=== PATIENT | male | born 1990 | race African-American/Black ===

== ENCOUNTER 2020-05-30 03:33 | Emergency (ER) | payer SELFPAY ==
[~2020-05-30] VITALS: Ht 188 cm; Wt 157.7 kg
[2020-05-30] MEDS ORDERED: ALBUTEROL SULFATE 8GM INHALER. ONE (03:46)
[2020-05-30 03:56] VITALS: BP 199/120
[2020-05-30] MEDS ORDERED: CLON0.1T PO (04:00)
[2020-05-30] MEDS ORDERED: cloNIDine HCL 0.1 MG TABLET PO ONE (04:00)
[2020-05-30] MEDS ORDERED: PRED20TA PO (04:00)
[2020-05-30] MEDS ORDERED: DEXAMETHASONE 4 MG TABLET PO ONE (04:00)
[2020-05-30] MEDS ORDERED: ALBU2.5V8 IH (04:00)
[2020-05-30] MEDS ORDERED: ALBUTEROL SULFATE 8GM INHALER. INH ONE (04:00)
--- NOTE | 2020-05-30 04:00 | PHYS DOC ---
Past History Past Medical History: Asthma, Hypertension Past Surgical History: No Surgical History Smoking: Quit Less Than 1 Year Alcohol Use: Heavy Drug Use: None General Adult EDM: Chief Complaint: SOA HPI: HPI: 29-year-old male with past medical history of asthma presents with report of increased wheezing and shortness of air over the last week. Patient reports he recently moved here from [place] and currently does not have a new prescription for an inhaler. Denies known sick contacts. Denies fever or chills. Patient denies known exposure to COVID-19. Review of Systems: Review of Systems: Constitutional: Denies fever or chills Eyes: Denies redness or eye pain HENT: Denies nasal congestion or sore throat Respiratory: Reports wheezing and shortness of air Cardiovascular: Denies chest pain or palpitations GI: Denies abdominal pain, nausea, or vomiting : Denies dysuria or hematuria Musculoskeletal: Denies back pain or joint pain Integument: Denies rash or skin lesions Neurologic: Denies headache, focal weakness or sensory changes Complete systems were reviewed and found to be within normal limits, except as documented in this note. Current Medications: Current Meds: Current Medications Medications (Trade) Dose Ordered Sig/Brooklynn Start Time Stop Time Status Last Admin Dose Admin Albuterol Sulfate (Ventolin Hfa Inhaler) 2 puff 1X ONCE 05/30/20 04:00 05/30/20 04:01 UNV 05/30/20 03:51 2 PUFF Clonidine HCl (Catapres) 0.1 mg 1X ONCE 05/30/20 04:00 05/30/20 04:01 UNV Dexamethasone (Decadron) 10 mg 1X ONCE 05/30/20 04:00 05/30/20 04:01 UNV Physical Exam: PE: Constitutional: Well developed, well nourished, no acute distress, non-toxic appearance HENT: Normocephalic, atraumatic Eyes: Conjunctiva normal, no discharge Neck: Normal range of motion, supple Lungs & Thorax: Mild respiratory distress, auditory wheezing noted, equal chest rise and fall Skin: Warm, dry, no erythema, no rash Extremities: No tenderness, ROM intact, no edema Neurologic: Alert and oriented X 3, no focal deficits noted Psychologic: Affect anxiety, judgment normal EKG: EKG: [] Radiology/Procedures: Radiology/Procedures: PROCEDURE: CHEST AP ONLY Chest AP portable at 0327: Reason for examination: Wheezing. The heart size is normal. Mediastinum is unremarkable. Lung latham are clear. No acute bony abnormalities are seen. Impression: No acute cardiopulmonary disease. Electronically signed by: Brandie Vyas MD (05/30/2020 4:11 AM) [id number] Course & Med Decision Making: Course & Med Decision Making Pertinent Imaging studies reviewed. (See chart for details) Patient presents with HPI and physical exam concerning for asthma exacerbation. Patient denies COVID-19 exposure. Afebrile. Sats stable. Albuterol MDI with spacer provided. Oral steroid initiated. X-ray without acute process. Patient noted to have elevated blood pressure which was addressed with 0.1 mg clonidine. Prescriptions were continued albuterol, prednisone, and clonidine PRN provided. Patient stable for discharge with outpatient follow-up with PCP. Discussed findings and plan with patient, who acknowledges understanding and agreement. Dragon Disclaimer: Dragon Disclaimer: This electronic medical record was generated, in whole or in part, using a voice recognition dictation system. Departure Departure: Impression: Primary Impression: Asthma exacerbation Qualified Codes: J45.21 - Mild intermittent asthma with (acute) exacerbation Additional Impression: Hypertension Qualified Codes: I10 - Essential (primary) hypertension Disposition: HOME/RESIDENCE PRIOR TO ADM Condition: STABLE Referrals: PCP,NO (PCP) Patient Instructions: Asthma, Adult, [id number], Hypertension, [id number] Scripts Clonidine Hcl (CLONIDINE HCL) 0.1 Mg Tablet 0.1 MG PO TID PRN PRN for ELEVATED BP, SEE COMMENTS, #14 TAB Take for systolic (upper) blood pressure greater than 185 and/or diastolic (lower) blood pressure greater than 105 Prov: DIMA BRIGGS DO 05/30/20 Prednisone (PREDNISONE) 20 Mg Tablet 2 TAB PO DAILY for Asthma exacerbation, #8 TAB Start this prescription tomorrow, Monday05/31/20 Prov: DIMA BRIGGS DO 05/30/20 Albuterol Sulfate (PROAIR HFA INHALER) 8.5 Gm Hfa.aer.ad 2 PUFF IH PRN Q4-6HRS PRN for wheezing, #1 INHALER 0 Refills Prov: DIMA BRIGGS DO 05/30/20 Justification of Admission: Justification of Admission: Justification of Admission Dx: N/A DIMA BRIGGS DO May 30, 2020 04:00
--- NOTE | 2020-05-30 04:13 | RAD ---
Chest AP portable at 0327: Reason for examination: Wheezing. The heart size is normal. Mediastinum is unremarkable. Lung latham are clear. No acute bony abnormalities are seen. Impression: No acute cardiopulmonary disease. Electronically signed by: Brandie Vyas MD (05/30/2020 4:11 AM) [id number]
== END 2020-05-30 04:34 | disposition home or self-care (01) ==
LOC: ER 03:33
DX: J45.21 Mild intermittent asthma with (acute) exacerbation (principal); F10.20 Alcohol dependence, uncomplicated; I10 Essential (primary) hypertension; Z87.891 Personal history of nicotine dependence; Y90.9 Presence of alcohol in blood, level not specified
CPT/HCPCS: 71045; 94640; 99283; J7613; J8540; 94664

== ENCOUNTER 2020-08-26 10:55 | Emergency (ER) | payer SELFPAY ==
[~2020-08-26] VITALS: Ht 185.4 cm; Wt 151.9 kg
[~2020-08-26 10:55] MED LIST: ALBU2.5V8 IH; CLON0.1T PO; PRED20TA PO
[2020-08-26] MEDS ORDERED: IPRATRPIUM/ALBUTEROL 0.5/2.5MG 3 ML NEBU. NEB ONE (11:15)
[2020-08-26] MEDS ORDERED: predniSONE 20 MG TABLET PO ONE (11:15)
--- NOTE | 2020-08-26 11:19 | PHYS DOC ---
Past History Past Medical History: Asthma, Hypertension Additional Past Medical Histor: obesity Past Surgical History: No Surgical History Smoking: Quit Less Than 1 Year Alcohol Use: Heavy Drug Use: None Adult General Chief Complaint Chief Complaint: SHORTNESS OF BREATH HPI HPI Patient is a 29-year-old male who presents for asthma exacerbation. Patient has a history of this, most recent exacerbation was approximately 3 months ago. Patient cites 4 days of worsening shortness of breath. Reports rhinorrhea and specifically weather change have caused him to increase wheezing and have shortness of breath. Patient still pending his 's newly obtained insurance policy to kick in and as a result, does not have any home inhaler/asthma therapy. Denies any fever, chills, COVID-19 contacts, chest pain or other concerning signs or symptoms Review of Systems Review of Systems Fourteen body systems of review of systems have been reviewed. See HPI for pertinent positives and negative responses, other horne all other systems are negative, non-pertinent or non-contributory Current Medications Current Medications Current Medications Medications (Trade) Dose Ordered Sig/Brooklynn Start Time Stop Time Status Last Admin Dose Admin Albuterol/ Ipratropium (Duoneb) 3 ml 1X ONCE 08/26/20 11:15 08/26/20 11:16 DC Prednisone (Prednisone) 60 mg 1X ONCE 08/26/20 11:15 08/26/20 11:16 DC 08/26/20 11:15 60 MG Allergies Allergies Allergies Coded Allergies Type Severity Reaction Last Updated Verified No Known Drug Allergies 05/30/20 No Physical Exam Physical Exam Constitutional: Well developed, well nourished, no acute distress, non-toxic appearance. HENT: Normocephalic, atraumatic, bilateral external ears normal, oropharynx moist, no oral exudates, nose normal. Eyes: PERRLA, EOMI, conjunctiva normal, no discharge. Neck: Normal range of motion, no tenderness, supple, no stridor. Cardiovascular: Heart rate regular, sinus rhythm, no murmurs rubs or gallops Lungs & Thorax: No obvious respiratory distress, mild increase in accessory muscle usage noted, bilateral wheezes heard diffusely, markedly improved after DuoNeb treatment Abdomen: Bowel sounds normal, soft, no tenderness, no masses, no pulsatile masses. Nonsurgical abdomen, no peritoneal signs Skin: Warm, dry, no erythema, no rash. Back: No tenderness, no CVA tenderness. Extremities: No tenderness, no cyanosis, no clubbing, ROM intact, no edema. Neurologic: Alert and oriented X 3, grossly normal motor & sensory function, no focal deficits noted. Psychologic: Affect normal, judgement normal, mood normal. Current Patient Data Vital Signs Vital Signs Date Time Temp Pulse Resp B/P (MAP) Pulse Ox O2 Delivery O2 Flow Rate FiO2 08/26/20 12:25 76 18 193/92 (125) 95 Room Air 08/26/20 11:15 98.0 EKG EKG EKG ordered and interpreted by myself at 1117 hrs. as sinus rhythm at 63 bpm without any interval abnormalities, no axis deviation, no ischemic findings, no STEMI Radiology/Procedures Radiology/Procedures PROCEDURE: CHEST AP ONLY Examination: CHEST AP ONLY History: Reason: SHOB / Spl. Instructions: / History: Comparison: None. Findings: AP portable upright frontal view of the chest was obtained. The cardiomediastinal silhouette is normal. Lungs are clear. There is no pneumothorax. No pleural effusion is appreciated. No acute bone abnormality. IMPRESSION: No acute cardiopulmonary process. Electronically signed by: Liborio Crain MD (08/26/2020 11:43 AM) [id number] Heart Score Risk Factors: Risk Factors: DM, Current or recent (<one month) smoker, HTN, HLP, family history of CAD, obesity. Risk Scores: Risk Factors: DM, Current or recent (<one month) smoker, HTN, HLP, family history of CAD, obesity. Course & Med Decision Making Course & Med Decision Making Pertinent Labs and Imaging studies reviewed. (See chart for details) Discussed most likely diagnosis of asthma exacerbation. Also discussed elevated blood pressure without diagnosis of hypertension I have provided patient with inhaler and steroid burst. I also advised patient to keep blood pressure log for presentation to primary care when he establishes within upcoming 1 week I did disclose this might be an acute presentation more concerning pathology and as such, strict return precautions were discussed. All questions and concerns addressed prior to discharge home in stable condition Dragon Disclaimer Dragon Disclaimer This electronic medical record was generated, in whole or in part, using a voice recognition dictation system. Departure Departure: Impression: Primary Impression: Asthma exacerbation Additional Impression: Elevated BP without diagnosis of hypertension Disposition: 01 [place] HOME SELF CARE/HOMELESS Condition: STABLE Referrals: PCP,WILLIE (PCP) Patient Instructions: Asthma Attacks, Prevention, Asthma, Adult Additional Instructions: As discussed prior to ER departure, please call primary care physician of your liking to schedule outpatient follow-up in upcoming 1 to 10 days time. You would benefit from outpatient pulmonary function testing whenever acute asthma exacerbation has resolved Please take prescribed steroids and as needed inhaler per instructions If any concerning signs or symptoms present prior to outpatient follow-up please do not hesitate to come back for repeat evaluation It was a pleasure to take care of you and I wish you a speedy recovery! Scripts Prednisone (PREDNISONE) 20 Mg Tablet 40 MG PO DAILY for bronchitis for 5 Days, #10 TAB Prov: ARABELLA SAMUELS DO 08/26/20 Problem Qualifiers ARABELLA SAMUELS DO Aug 26, 2020 11:19
--- NOTE | 2020-08-26 11:33 | EKG ---
[address] [address] Test Date: 2020-08-26 Test Time: 11:13:49 Pat Name: YOEL SUTTON Department: Room: Gender: M Certified Ophthalmic Surgical Assistant: : 1990 Requested By: ARABELLA SAMUELS Order Number: [id number] Reading MD: Measurements Intervals [place] Rate: 63 P: 59 CT: 160 QRS: 75 QRSD: 108 T: 47 QT: 396 QTc: 408 Interpretive Statements SINUS ARRHYTHMIA OTHERWISE NORMAL ECG RI6.02 No previous ECG available for comparison
--- NOTE | 2020-08-26 11:46 | RAD ---
Examination: CHEST AP ONLY History: Reason: SHOB / Spl. Instructions: / History: Comparison: None. Findings: AP portable upright frontal view of the chest was obtained. The cardiomediastinal silhouette is normal. Lungs are clear. There is no pneumothorax. No pleural effusion is appreciated. No acute bone abnormality. IMPRESSION: No acute cardiopulmonary process. Electronically signed by: Liborio Crain MD (08/26/2020 11:43 AM) [id number]
[2020-08-26] MEDS ORDERED: PRED20TA PO (12:03)
[2020-08-26] MEDS ORDERED: ALBUTEROL SULFATE 8GM INHALER. INH ONE (12:15)
[2020-08-26 12:25] VITALS: BP 193/92
== END 2020-08-26 12:27 | disposition home or self-care (01) ==
LOC: ER 10:55
DX: J45.901 Unspecified asthma with (acute) exacerbation (principal); I10 Essential (primary) hypertension; F10.20 Alcohol dependence, uncomplicated; E66.9 Obesity, unspecified; Z87.891 Personal history of nicotine dependence; Z68.41 Body mass index [BMI] 40.0-44.9, adult; Y90.9 Presence of alcohol in blood, level not specified
CPT/HCPCS: 71045; 93005; 94640; 99284; J7512; J7613; 94664

== ENCOUNTER 2020-11-27 01:03 | Emergency (ER) | payer BC ==
[~2020-11-27] VITALS: Ht 185.4 cm; Wt 143.0 kg
[2020-11-27] MEDS ORDERED: IPRATRPIUM/ALBUTEROL 0.5/2.5MG 3 ML NEBU. ONE (01:11)
[2020-11-27] MEDS ORDERED: ALBUTEROL SULFATE 8GM INHALER. ONE (01:16)
[2020-11-27] MEDS ORDERED: ALBUTEROL SULFATE 8GM INHALER. INH ONE (01:30)
[2020-11-27] MEDS ORDERED: DEXAMETHASONE 4 MG TABLET PO ONE (01:30)
[2020-11-27] MEDS ORDERED: ALBU2.5V8 IH (01:55)
[2020-11-27] MEDS ORDERED: PRED20TA PO (01:55)
--- NOTE | 2020-11-27 01:55 | PHYS DOC ---
Past History Past Medical History: Asthma, Hypertension Additional Past Medical Histor: obesity Past Surgical History: Tonsillectomy Smoking: Quit Less Than 1 Year Alcohol Use: Occasionally Drug Use: None General Adult EDM: Chief Complaint: SHORTNESS OF BREATH HPI: HPI: Patient is a [age] year old [sex] who presents with [] Review of Systems: Review of Systems: Constitutional: Denies fever or chills Eyes: Denies change in visual acuity HENT: Denies nasal congestion or sore throat Respiratory: Denies cough or shortness of breath Cardiovascular: Denies chest pain or edema GI: Denies abdominal pain, nausea, vomiting, bloody stools or diarrhea : Denies dysuria Musculoskeletal: Denies back pain or joint pain Integument: Denies rash Neurologic: Denies headache, focal weakness or sensory changes Endocrine: Denies polyuria or polydipsia Lymphatic: Denies swollen glands Psychiatric: Denies depression or anxiety Current Medications: Current Meds: Current Medications Medications (Trade) Dose Ordered Sig/Brooklynn Start Time Stop Time Status Last Admin Dose Admin Albuterol Sulfate (Ventolin Hfa Inhaler) 2 puff 1X ONCE 11/27/20 01:30 11/27/20 01:31 DC 11/27/20 01:22 2 PUFF Albuterol/ Ipratropium (Duoneb) 3 ml STK-MED ONCE 11/27/20 01:11 11/27/20 01:12 DC Dexamethasone (Decadron) 10 mg 1X ONCE 11/27/20 01:30 11/27/20 01:31 DC 11/27/20 01:44 10 MG Allergies: Allergies: Allergies Coded Allergies Type Severity Reaction Last Updated Verified No Known Drug Allergies 05/30/20 No Physical Exam: PE: Constitutional: Well developed, well nourished, no acute distress, non-toxic appearance. [] HENT: Normocephalic, atraumatic, bilateral external ears normal, oropharynx moist, no oral exudates, nose normal. [] Eyes: PERRLA, EOMI, conjunctiva normal, no discharge. [] Neck: Normal range of motion, no tenderness, supple, no stridor. [] Cardiovascular:Heart rate regular rhythm, no murmur [] Lungs & Thorax: Bilateral breath sounds clear to auscultation [] Abdomen: Bowel sounds normal, soft, no tenderness, no masses, no pulsatile nelly s. [] Skin: Warm, dry, no erythema, no rash. [] Back: No tenderness, no CVA tenderness. [] Extremities: No tenderness, no cyanosis, no clubbing, ROM intact, no edema. [] Neurologic: Alert and oriented X 3, normal motor function, normal sensory function, no focal deficits noted. [] Psychologic: Affect normal, judgement normal, mood normal. [] Current Patient Data: Vital Signs: Vital Signs Date Time Temp Pulse Resp B/P (MAP) Pulse Ox O2 Delivery O2 Flow Rate FiO2 11/27/20 01:23 97 Room Air 11/27/20 01:03 98.2 82 18 168/111 (130) EKG: EKG: [] Radiology/Procedures: Radiology/Procedures: [] Heart Score: Risk Factors: Risk Factors: DM, Current or recent (<one month) smoker, HTN, HLP, family history of CAD, obesity. Risk Scores: Score 0 - 3: 2.5% MACE over next 6 weeks - Discharge Home Score 4 - 6: 20.3% MACE over next 6 weeks - Admit for Clinical Observation Score 7 - 10: 72.7% MACE over next 6 weeks - Early Invasive Strategies Course & Med Decision Making: Course & Med Decision Making Pertinent Labs and Imaging studies reviewed. (See chart for details) [] Dragon Disclaimer: Luis Disclaimer: This electronic medical record was generated, in whole or in part, using a voice recognition dictation system. Departure Departure: Impression: Primary Impression: Asthma exacerbation Qualified Codes: J45.21 - Mild intermittent asthma with (acute) exacerbation Disposition: 01 [place] HOME SELF CARE/HOMELESS Condition: STABLE Referrals: PCP,NO (PCP) Patient Instructions: Asthma, Adult, [id number] Additional Instructions: You have been tested for or diagnosed with COVID-19. It is an infection caused by a new type of coronavirus. COVID-19 will cause cold-like or mild flu symptoms in most. It can cause more severe symptoms like problems breathing in some. There is no treatment for COVID-19. The body will clear the infection over time. Self-care will help to ease discomfort. Steps to Take: Self-Care Rest as needed. Healthy habits may help you feel better. Steps include: Choose healthy foods including fruits and vegetables. Drink water throughout the day. Get plenty of sleep each night. If you smoke, try to quit. It may ease breathing. Avoid alcohol. Keep Others Healthy The virus can spread to others. Droplets are released every time you sneeze or cough. The droplets can get into the mouth, nose, or eyes of people near you and lead to infection. To lower the chances of spreading COVID-19 to others: Stay at home until your doctor has said it is safe to leave. If you tested posit kathya this will mean staying isolated until both of the following are true: At least 7 days have passed since the start of illness. You are free of fever for at least 72 hours without the use of medicine. During this time: - Avoid public areas, events, or transportation. Do not return to work or school until your doctor has said it is safe to do so. - Call ahead if you need to go to a medical center. Let them know you may have COVID-19. It will help them guide you where to go. They may also ask you to wear a facemask when you come to the office. - If you call for emergency medical services, let them know you may have COVID- 19. While at home: - Try to avoid close contact with others. Stay about 6 feet away. - If possible, spend most of your time in a separate room from others. - Use a face mask if you will be in close contact with others such as sharing a room or vehicle. - Have someone wipe down common surfaces in the home. Use household electrophysiology nurse practitioner every day on areas like doorknobs, counters, or sinks. - Cough or sneeze into a tissue. Throw the tissue away right after use. If a tissue is not available, cough or sneeze into your elbow. - Wash your hands often. Wash them after sneezing or coughing. Use soap and water and wash for at least 20 seconds. Alcohol based hand negative cleaner can be used if soap and water is not available. - Do not prepare food for others. Avoid sharing personal items like forks, spoons, or toothbrushes. - Avoid close contact with pets while you are sick. There is no evidence of the virus passing to pets. This is a safety step until more is known about this virus. Isolation can be frustrating. Social interaction can help. Keep in touch with friends and family through phone and tech options. You can still interact with others in your home, just keep a safe distance of about 6 feet. Follow-up: Your doctors office will check in with you to see if there are any changes in your health. You may be asked to keep track of symptoms to share with them. They will also let you know when you are clear to be in public again. Problems to Look Out For: Contact your doctor if your recovery is not going as you expect. Get emergency care if you have problems such as: - Trouble breathing - Nonstop chest pain or pressure - Changes in awareness, confusion, or problems waking - Lips or face have bluish color - Worsening of symptoms If you think you have an emergency, call for emergency medical services right away. As taken from [facility] Scripts Prednisone (PREDNISONE) 20 Mg Tablet 2 TAB PO DAILY for Asthma, #8 TAB Start this medication tomorrow, Monday11/28/20 Prov: DIMA BRIGGS DO 11/27/20 Albuterol Sulfate (PROAIR HFA INHALER) 8.5 Gm Hfa.aer.ad 2 PUFF IH PRN Q4-6HRS PRN for wheezing, #1 INHALER 0 Refills Prov: DIMA BRIGGS DO 11/27/20 DIMA BRIGGS DO Nov 27, 2020 01:55
--- NOTE | 2020-11-27 02:47 | RAD ---
XR CHEST 1V Clinical Indication: Reason: SOA, cough, COVID PUI / Spl. Instructions: / History: Comparison: AP chest, August 26, 2020. Findings: The cardiomediastinal silhouette is normal. Lungs are clear. There is no pneumothorax. No pleural eff usion is appreciated. No acute bone abnormality. IMPRESSION: No acute cardiopulmonary process. Electronically signed by: Zachery Hwang MD (11/27/2020 2:44 AM) [facility]
== END 2020-11-27 02:00 | disposition home or self-care (01) ==
LOC: ER 01:03
DX: J45.21 Mild intermittent asthma with (acute) exacerbation (principal); I10 Essential (primary) hypertension; E66.9 Obesity, unspecified; Z87.891 Personal history of nicotine dependence; Z68.41 Body mass index [BMI] 40.0-44.9, adult
CPT/HCPCS: 71045; 94640; 99283; J8540; 94664

== ENCOUNTER 2021-01-11 15:52 | Emergency (ER) | payer BC ==
[~2021-01-11] VITALS: Ht 185.4 cm; Wt 153.0 kg
--- NOTE | 2021-01-11 16:03 | PHYS DOC ---
Past History Past Medical History: Asthma, Hypertension Additional Past Medical Histor: obesity Past Surgical History: Tonsillectomy Smoking: Cigarettes Alcohol Use: Occasionally Drug Use: None Adult General Chief Complaint Chief Complaint: DYSPNEA/RESPIRATOY DISTRESS HPI HPI Patient is a 30yo male presenting for SHOB. Onset was 3-4 days ago. Nothing known makes better, cigarettes and recent change in weather make worse. Denies any pain but admits feelings of non-productive cough and increased wheezing. Has history of asthma and uses albuterol in the past but has been out and unable to see PCP for refills due to covid-19 pandemic. Patient has history of HTN only a nd takes 10mg lisinopril which he did not take today. No fever, history of blood clots or other concerning findings Review of Systems Review of Systems Fourteen body systems of review of systems have been reviewed. See HPI for pertinent positives and negative responses, other horne all other systems are negative, non-pertinent or non-contributory Allergies Allergies Allergies Coded Allergies Type Severity Reaction Last Updated Verified No Known Drug Allergies 05/30/20 No Physical Exam Physical Exam Constitutional: Well developed, well nourished, no acute distress, non-toxic appearance. HENT: Normocephalic, atraumatic, bilateral external ears normal, oropharynx moist, no oral exudates, nose normal. Eyes: PERRLA, EOMI, conjunctiva normal, no discharge. Neck: Normal range of motion, no tenderness, supple, no stridor. Cardiovascular: Heart rate regular, sinus rhythm, no murmurs rubs or gallops Lungs & Thorax: Bilateral breath sounds present with copious wheezing, no increased work of breathing or accessory muscle use Abdomen: Bowel sounds normal, soft, no tenderness, no masses, no pulsatile masses. Nonsurgical abdomen, no peritoneal signs Skin: Warm, dry, no erythema, no rash. Back: No tenderness, no CVA tenderness. Extremities: No tenderness, no cyanosis, no clubbing, ROM intact, no edema. Neurologic: Alert and oriented X 3, grossly normal motor & sensory function, no focal deficits noted. Psychologic: Affect normal, judgement normal, mood normal. Current Patient Data Vital Signs Vital Signs Date Time Temp Pulse Resp B/P (MAP) Pulse Ox O2 Delivery O2 Flow Rate FiO2 01/11/21 15:55 97.5 91 20 208/95 (132) 98 Room Air Vital Signs Date Time Temp Pulse Resp B/P (MAP) Pulse Ox O2 Delivery O2 Flow Rate FiO2 01/11/21 16:48 88 20 169/104 (125) 97 Room Air 01/11/21 15:55 97.5 EKG EKG [] Radiology/Procedures Radiology/Procedures PROCEDURE: CHEST AP ONLY EXAM: AP View of the chest DATE: 01/11/2021 4:18 PM INDICATION: Reason: SHORTNESS OF BREATH. / Spl. Instructions: / History: COMPARISON: No Prior FINDINGS: The heart is not enlarged. Mediastinal and hilar contours are normal. No focal parenchymal airspace opacity. No pleural effusion or pneumothorax. IMPRESSION: 1. No radiographic evidence for acute cardiopulmonary process. Electronically signed by: Juma Villafuerte MD (01/11/2021 4:21 PM) [facility] Heart Score C/O Chest Pain: No Risk Factors: Risk Factors: DM, Current or recent (<one month) smoker, HTN, HLP, family history of CAD, obesity. Risk Scores: Risk Factors: DM, Current or recent (<one month) smoker, HTN, HLP, family history of CAD, obesity. Course & Med Decision Making Course & Med Decision Making Hemodynamically stable patient with history and physical exam consistent with asthma exacerbation. ER workup reviewed, disclosed no indication for further workup or antibiotics. Patient responded to ER intervention. Near complete improvement in wheezing, ambulatory and in no distress prior to departure whilst never desaturating during visit. Patient to leave with RX albuterol, prednisone and close PCP follow-up for repeat examination Strict return precautions were discussed with good understanding, all questions and concerns addressed prior to ER departure in improved condition Dragon Disclaimer Dragon Disclaimer This electronic medical record was generated, in whole or in part, using a voice recognition dictation system. Departure Departure: Impression: Primary Impression: Asthma exacerbation Additional Impression: Hypertension Disposition: 01 DC HOME SELF CARE/HOMELESS Condition: IMPROVED Referrals: PCP,NO (PCP) Patient Instructions: Asthma Prevention-Brief, Asthma, Acute Bronchospasm Additional Instructions: You were seen for an asthma exacerbation. Your exacerbation was likely caused by a change in weather and/or lack of home medications. You should be checking your peak flows daily and taking all of your controller and rescue inhalers as p reviously prescribed. Any new medications today, please take those as prescribed as well. It may take a few days for the steroids to begin to work, but use albuterol as needed for the next few days to help with symptoms. Return to the ED if you develop worsening cough, shortness of breath, fever > 101, chest pain, or any other new or concerning symptoms. You need to follow up with your primary care doctor as soon as possible as a severe asthma exacerbation can be fatal. Scripts Albuterol Sulfate (Proventil Hfa) 6.7 Gm Hfa.aer.ad 6.7 GM IH Q4-6HRS PRN for SHORTNESS OF BREATH, #1 EACH Prov: ARABELLA SAMUELS DO 01/11/21 Prednisone (PREDNISONE) 20 Mg Tablet 40 MG PO DAILY for Asthma exacerbation for 5 Days, #10 TAB Prov: ARABELLA SAMUELS DO 01/11/21 Problem Qualifiers ARABELLA SAMUELS DO Jan 11, 2021 16:03
[2021-01-11] MEDS ORDERED: ALBUTEROL SULFATE 2.5 MG/3 ML NEBU. NEB ONE (16:15)
[2021-01-11] MEDS ORDERED: predniSONE 20 MG TABLET PO ONE (16:15)
--- NOTE | 2021-01-11 16:24 | RAD ---
EXAM: AP View of the chest DATE: 01/11/2021 4:18 PM INDICATION: Reason: SHORTNESS OF BREATH. / Spl. Instructions: / History: COMPARISON: No Prior FINDINGS: The heart is not enlarged. Mediastinal and hilar contours are normal. No focal parenchymal airspace opacity. No pleural effusion or pneumothorax. IMPRESSION: 1. No radiographic evidence for acute cardiopulmonary process. Electronically signed by: Juma Villafuerte MD (01/11/2021 4:21 PM) NANCY
[2021-01-11] MEDS ORDERED: LISINOPRIL 10 MG TABLET PO ONE (16:30)
[2021-01-11] MEDS ORDERED: ALBU6.7H8 IH (16:30)
[2021-01-11] MEDS ORDERED: PRED20TA PO (16:30)
[2021-01-11 16:48] VITALS: BP 169/104
[2021-01-11] MEDS ORDERED: ALBUTEROL SULFATE 8GM INHALER. INH ONE (17:00)
== END 2021-01-11 17:05 | disposition home or self-care (01) ==
LOC: ER 15:52
DX: J45.901 Unspecified asthma with (acute) exacerbation (principal); I10 Essential (primary) hypertension; F17.210 Nicotine dependence, cigarettes, uncomplicated; E66.9 Obesity, unspecified; Z68.41 Body mass index [BMI] 40.0-44.9, adult
CPT/HCPCS: 71045; 94640; 99284; J7512; J7613; 94664

== ENCOUNTER 2021-01-19 23:14 | Emergency (ER) | payer BC ==
[~2021-01-19] VITALS: Ht 185.4 cm; Wt 164.0 kg
[~2021-01-19 23:14] MED LIST changes: +ALBU6.7H8 IH
--- NOTE | 2021-01-19 23:52 | RAD ---
AP chest x-ray HISTORY: Shortness of breath. Asthma. COMPARISON: Chest x-ray January 11, 2021. FINDINGS: Heart size normal. Mediastinal silhouette is normal. No pneumothorax, pulmonary opacities o r pleural effusions. The bones are unremarkable. IMPRESSION: No acute process. Electronically signed by: Kendall Gonzalez MD (01/19/2021 11:49 PM) [facility]
[2021-01-20] MEDS ORDERED: amLODIPine BESYLATE 5 MG TABLET PO ONE
[2021-01-20] MEDS ORDERED: predniSONE 20 MG TABLET PO ONE
[2021-01-20] MEDS ORDERED: IPRATRPIUM/ALBUTEROL 0.5/2.5MG 3 ML NEBU. NEB ONE
[2021-01-20] MEDS ORDERED: ALBUTEROL SULFATE 8GM INHALER. ONE (00:03)
[2021-01-20] MEDS ORDERED: amLODIPine BESYLATE 5 MG TABLET ONE (00:07)
[2021-01-20] MEDS ORDERED: predniSONE 20 MG TABLET ONE (00:07)
--- NOTE | 2021-01-20 00:08 | PHYS DOC ---
Past History Past Medical History: Asthma, Hypertension Additional Past Medical Histor: obesity Past Surgical History: Tonsillectomy Smoking: Cigarettes Alcohol Use: Heavy Drug Use: None Adult General Chief Complaint Chief Complaint: ASTHMA HPI HPI Patient is a 30-year-old male who presents via POV for shortness of breath. Patient has known history of asthma, was seen by me accidentally 1 week prior for asthma exacerbation and was given standard treatment while in ER and subsequently discharged with albuterol inhaler, steroids, and instructions to follow-up with PCP as he has medical insurance. Nonetheless, patient reports running out of inhaler since last visit? He has not been using a spacer/chamber. Patient took steroids to completion. He also ran out of previously prescribed lisinopril 10 mg daily for his blood pressure. States he has had classic feelings of prior asthma exacerbations that includes chest tightness, increased wheeze and fatigue. No fever, no sick contacts, no recent travel, no chest pain, no syncope Review of Systems Review of Systems Fourteen body systems of review of systems have been reviewed. See HPI for pertinent positives and negative responses, other horne all other systems are negative, non-pertinent or non-contributory Current Medications Current Medications Current Medications Medications (Trade) Dose Ordered Sig/Brooklynn Start Time Stop Time Status Last Admin Dose Admin Albuterol Sulfate (Ventolin Hfa Inhaler) 60 puff STK-MED ONCE 01/20/21 00:03 01/20/21 00:04 DC Albuterol/ Ipratropium (Duoneb) 3 ml 1X ONCE 01/20/21 00:00 01/20/21 00:01 UNV Amlodipine Besylate (Norvasc) 5 mg STK-MED ONCE 01/20/21 00:07 01/20/21 00:07 DC Prednisone (Prednisone) 20 mg STK-MED ONCE 01/20/21 00:07 01/20/21 00:07 DC Allergies Allergies Allergies Coded Allergies Type Severity Reaction Last Updated Verified No Known Drug Allergies 05/30/20 No Physical Exam Physical Exam Constitutional: Well developed, well nourished, no acute distress, non-toxic appearance. Patient was able to ambulate to ER room without issues and/or noted hypoxia HENT: Normocephalic, atraumatic, bilateral external ears normal, oropharynx moist, no oral exudates, nose normal. Eyes: PERRLA, EOMI, conjunctiva normal, no discharge. Neck: Normal range of motion, no tenderness, supple, no stridor. Cardiovascular: Heart rate regular, sinus rhythm, no murmurs rubs or gallops Lungs & Thorax: Diffuse wheezing bilaterally without any obvious increased work of breathing or accessory muscle use Abdomen: Bowel sounds normal, soft, no tenderness, no masses, no pulsatile masses. Nonsurgical abdomen, no peritoneal signs Skin: Warm, dry, no erythema, no rash. Back: No tenderness, no CVA tenderness. Extremities: No tenderness, no cyanosis, no clubbing, ROM intact, no edema. Neurologic: Alert and oriented X 3, grossly normal motor & sensory function, no focal deficits noted. Psychologic: Affect normal, judgement normal, mood normal. Current Patient Data Vital Signs Vital Signs Date Time Temp Pulse Resp B/P (MAP) Pulse Ox O2 Delivery O2 Flow Rate FiO2 01/19/21 23:14 98.7 83 20 208/131 (156) 96 Room Air EKG EKG [] Radiology/Procedures Radiology/Procedures PROCEDURE: CHEST AP ONLY AP chest x-ray HISTORY: Shortness of breath. Asthma. COMPARISON: Chest x-ray January 11, 2021. FINDINGS: Heart size normal. Mediastinal silhouette is normal. No pneumothorax, pulmonary opacities or pleural effusions. The bones are unremarkable. IMPRESSION: No acute process. Electronically signed by: Kendall Gonzalez MD (01/19/2021 11:49 PM) [facility] Heart Score C/O Chest Pain: No HEART Score for Chest Pain: HEART Score for Chest Pain Response (Comments) Value History Slighlty/Non-Suspicious 0 ECG Normal 0 Age < 45 0 Risk Factors 1 or 2 Risk Factors 1 Total 1 Risk Factors: Risk Factors: DM, Current or recent (<one month) smoker, HTN, HLP, family history of CAD, obesity. Risk Scores: Risk Factors: DM, Current or recent (<one month) smoker, HTN, HLP, family history of CAD, obesity. Course & Med Decision Making Course & Med Decision Making Patient seen and evaluated by myself and work-up and subsequent treatment for likely diagnosis of asthma exacerbation started Nonetheless, in the middle of the ER work-up, patient eloped Patient pulled out peripheral IV that was placed and left without notifying any medical personnel. Patient did not leave with any paperwork or new prescriptions Dragon Disclaimer Luis Disclaimer This electronic medical record was generated, in whole or in part, using a voice recognition dictation system. Departure Departure: Impression: Primary Impression: Eloped from emergency department Disposition: 07 AMA/ELOPED/LWBS Condition: GUARDED Referrals: PCP,NO (PCP) ARABELLA SAMUELS DO Jan 20, 2021 00:08
[2021-01-20] MEDS ORDERED: ALBUTEROL SULFATE 8GM INHALER. INH ONE (00:15)
[2021-01-20 00:58] VITALS: BP 168/98
== END 2021-01-20 00:58 | disposition left against medical advice (07) ==
LOC: ER 23:14
DX: R06.02 Shortness of breath (principal); R07.89 Other chest pain; R53.83 Other fatigue; J45.909 Unspecified asthma, uncomplicated; I10 Essential (primary) hypertension; F17.210 Nicotine dependence, cigarettes, uncomplicated; F10.20 Alcohol dependence, uncomplicated; Y90.9 Presence of alcohol in blood, level not specified
CPT/HCPCS: 71045; 94640; 99284; J7512; 94664

== ENCOUNTER 2021-02-19 21:06 | Emergency (ER) | payer BC ==
[~2021-02-19] VITALS: Ht 185.4 cm; Wt 153.4 kg
[2021-02-19 21:55] VITALS: BP 183/99
[2021-02-19] MEDS ORDERED: DEXAMETHASONE 4 MG TABLET PO ONE (22:00)
[2021-02-19] MEDS ORDERED: IPRATRPIUM/ALBUTEROL 0.5/2.5MG 3 ML NEBU. NEB ONE (22:00)
[2021-02-19] MEDS ORDERED: ALBU2.5V8 IH (22:38)
--- NOTE | 2021-02-19 22:38 | PHYS DOC ---
Past History Past Medical History: Asthma, Hypertension Additional Past Medical Histor: obesity Past Surgical History: Tonsillectomy Smoking: Cigarettes Alcohol Use: Heavy Drug Use: None Adult General Chief Complaint Chief Complaint: ASTHMA HPI HPI Patient is a 30-year-old male with a past medical history for asthma who presents with asthma exacerbation. States that it started today, and has had some wheezing with it but does not have any of his asthma medications. Denies any recent travel, traumas, illnesses, fevers, chest pain, abdominal pain, nausea, vomiting, dysuria, hematuria, blood in the stool or diarrhea. States he is otherwise been well. States he is eating and drinking normally for him. States he is making urine and stool normally for him. Denies any known ill contacts. States that he would like prescriptions for his albuterol. Review of Systems Review of Systems Review of systems otherwise unremarkable except noted in HPI Current Medications Current Medications Current Medications Medications (Trade) Dose Ordered Sig/Brooklynn Start Time Stop Time Status Last Admin Dose Admin Albuterol/ Ipratropium (Duoneb) 3 ml 1X ONCE 02/19/21 22:00 02/19/21 22:01 DC 02/19/21 21:43 3 ML Dexamethasone (Decadron) 10 mg 1X ONCE 02/19/21 22:00 02/19/21 22:01 DC 02/19/21 21:52 10 MG Allergies Allergies Allergies Coded Allergies Type Severity Reaction Last Updated Verified No Known Drug Allergies 05/30/20 No Physical Exam Physical Exam Constitutional: Well developed, well nourished, no acute distress, non-toxic appearance. [] HENT: Normocephalic, atraumatic, bilateral external ears normal, oropharynx moist, no oral exudates, nose normal. [] Eyes: conjunctiva normal, no discharge. [] Neck: Normal range of motion, no tenderness, supple, no stridor. [] Cardiovascular:Heart rate regular rhythm, no murmur [] Lungs & Thorax: Bilateral breath sounds notable for mild end expiratory wheeze Skin: Warm, dry, no erythema, no rash. [] Extremities: No tenderness, no edema. [] Neurologic: Alert and oriented X 3, no focal deficits noted. [] Psychologic: Affect normal, judgement normal, mood normal. [] Current Patient Data Vital Signs Vital Signs Date Time Temp Pulse Resp B/P (MAP) Pulse Ox O2 Delivery O2 Flow Rate FiO2 02/19/21 21:55 98.2 95 36 183/99 (127) 95 Room Air EKG EKG [] Radiology/Procedures Radiology/Procedures [] Heart Score C/O Chest Pain: No Risk Factors: Risk Factors: DM, Current or recent (<one month) smoker, HTN, HLP, family history of CAD, obesity. Risk Scores: Risk Factors: DM, Current or recent (<one month) smoker, HTN, HLP, family history of CAD, obesity. Course & Med Decision Making Course & Med Decision Making Patient is a 30-year-old male who presents with asthma exacerbation Vital signs initially notable for hypertension and tachypnea on 98% room air. Physical exam noted above. Given DuoNeb and steroids. On reassessment patient's wheezes had resolved and he was feeling much better. Patient stated he was feeling better and was ready to be discharged home and requested a prescription for albuterol. Given prescription of albuterol with some refills. Advised to follow-up with his primary care first thing next week to update on ED visit and discuss his need for asthma management. Gave strict return precautions to the ED. Patient grateful, verbalized understanding and agreed with plan of discharge. [] Dragon Disclaimer Dragon Disclaimer This electronic medical record was generated, in whole or in part, using a voice recognition dictation system. Departure Departure: Impression: Primary Impression: Asthma exacerbation Disposition: 01 HOME / SELF CARE / HOMELESS Condition: GOOD Referrals: PCP,NO (PCP) GADIEL ALANIZ MD Patient Instructions: Asthma Attacks, Prevention, Asthma, Acute Bronchospasm Additional Instructions: Please read all of the attached information carefully. Please use your albuterol prescription as demonstrated and prescribed. Please follow-up with your primary care physician or call the primary care physician at the number pro vided to set up a follow-up appointment as soon as you can to manage her asthma. Please come back to the emergency department immediately with new or concerning symptoms as discussed. Scripts Albuterol Sulfate (PROAIR HFA INHALER) 8.5 Gm Hfa.aer.ad 2 PUFF IH PRN Q4-6HRS PRN for wheezing for 21 Days, #1 INHALER 0 Refills Prov: RAMON CALDERON MD 02/19/21 RAMON CALDERON MD Feb 19, 2021 22:38
[2021-02-19] MEDS ORDERED: ALBUTEROL SULFATE 8GM INHALER. INH ONE (22:45)
== END 2021-02-19 22:45 | disposition home or self-care (01) ==
LOC: ER 21:06
DX: J45.901 Unspecified asthma with (acute) exacerbation (principal); I10 Essential (primary) hypertension; F17.210 Nicotine dependence, cigarettes, uncomplicated; F10.20 Alcohol dependence, uncomplicated; E66.9 Obesity, unspecified; Z68.41 Body mass index [BMI] 40.0-44.9, adult; Y90.9 Presence of alcohol in blood, level not specified
CPT/HCPCS: 94640; 99284; J8540; 94664

== ENCOUNTER 2021-03-25 20:41 | Emergency (ER) | payer BC ==
[~2021-03-25] VITALS: Ht 185.4 cm; Wt 153.4 kg
[2021-03-25] MEDS ORDERED: IPRATRPIUM/ALBUTEROL 0.5/2.5MG 3 ML NEBU. ONE (20:45)
[2021-03-25] MEDS ORDERED: DEXAMETHASONE SOD PHOS 10 MG/ML VIAL. PO ONE (21:00)
[2021-03-25] MEDS ORDERED: ALBU2.5V8 IH (21:00)
[2021-03-25] MEDS ORDERED: IPRATRPIUM/ALBUTEROL 0.5/2.5MG 3 ML NEBU. NEB ONE (21:00)
[2021-03-25] MEDS ORDERED: ALBUTEROL SULFATE 8GM INHALER. INH ONE (21:00)
--- NOTE | 2021-03-25 21:01 | PHYS DOC ---
Past History Past Medical History: Asthma, Hypertension Additional Past Medical Histor: obesity Past Surgical History: Tonsillectomy Smoking: Cigarettes Alcohol Use: Heavy Drug Use: None Adult General Chief Complaint Chief Complaint: SHORTNESS OF BREATH HPI HPI Patient is a 30-year-old male with a past medical history for asthma who presents with a chief complaint of 2 days of wheezing at home and out of albuterol wanting a medication refill. States he currently does not have a physician and would like resources for local free clinics and primary care physicians. Denies any recent travel, illnesses, fevers, chest pain, abdominal pain, nausea, vomiting. Denies any alcohol or drug use. States he is eating and drinking normally for him. States he is making urine and stool normally for him. Denies any recent known ill contacts. Review of Systems Review of Systems Review of systems otherwise unremarkable except noted in HPI Current Medications Current Medications Current Medications Medications (Trade) Dose Ordered Sig/Brooklynn Start Time Stop Time Status Last Admin Dose Admin Albuterol/ Ipratropium (Duoneb) 3 ml 1X ONCE 03/25/21 21:00 03/25/21 21:01 UNV 03/25/21 20:50 3 ML Allergies Allergies Allergies Coded Allergies Type Severity Reaction Last Updated Verified No Known Drug Allergies 05/30/20 No Physical Exam Physical Exam Constitutional: Well developed, well nourished, no acute distress, non-toxic appearance. [] HENT: Normocephalic, atraumatic, bilateral external ears normal, oropharynx moist, no oral exudates, nose normal. [] Eyes: conjunctiva normal, no discharge. [] Neck: Normal range of motion, no tenderness, supple, no stridor. [] Cardiovascular:Heart rate regular rhythm, no murmur [] Lungs & Thorax: Bilateral end expiratory wheeze Skin: Warm, dry, no erythema, no rash. [] Neurologic: Alert and oriented X 3, normal motor function, normal sensory function, no focal deficits noted. [] Psychologic: Affect normal, judgement normal, mood normal. [] Current Patient Data Vital Signs Vital Signs Date Time Temp Pulse Resp B/P (MAP) Pulse Ox O2 Delivery O2 Flow Rate FiO2 03/25/21 20:41 98.8 87 18 179/136 (150) 96 Room Air EKG EKG [] Radiology/Procedures Radiology/Procedures [] Heart Score C/O Chest Pain: No Risk Factors: Risk Factors: DM, Current or recent (<one month) smoker, HTN, HLP, family history of CAD, obesity. Risk Scores: Risk Factors: DM, Current or recent (<one month) smoker, HTN, HLP, family history of CAD, obesity. Course & Med Decision Making Course & Med Decision Making Patient is a 30-year-old male with asthma who presents for wheezing and medicati on refill Vital signs notable for hypertension. Physical exam noted above. Patient given steroids, DuoNeb treatment and albuterol inhaler with spacer and education on how to use it in the emergency department. Given prescription for albuterol. Given resources for local free clinics and primary care physicians. Advised to call to establish care if he does not already have a primary care physician first thing Monday to set up a follow-up visit. Gave return precautions to the ED. Patient grateful, verbalized understanding and agreed with plan of discharge. [] Dragon Disclaimer Dragon Disclaimer This electronic medical record was generated, in whole or in part, using a voice recognition dictation system. Departure Departure: Impression: Primary Impression: Asthma exacerbation Additional Impression: Medication refill Disposition: HOME / SELF CARE / HOMELESS Condition: GOOD Referrals: PCP,NO (PCP) MICKIE MATA MD, PETER J MD Patient Instructions: Asthma Prevention-Brief, Asthma, Acute Bronchospasm Additional Instructions: Please read all of the attached information very carefully. Please use your albuterol as discussed and demonstrated. You are given a prescription for albuterol as well. You were given contact information for local primary care physicians and free clinics. Please call as soon as possible to find a primary care physician if you do not have 1 to establish care and set up a follow-up appointment as soon as you can to discuss your ED visit and need for asthma medication management. Please come back to the emergency department with new or concerning symptoms as discussed. Scripts Albuterol Sulfate (PROAIR HFA INHALER) 8.5 Gm Hfa.aer.ad 2 PUFF IH PRN Q4-6HRS PRN for wheezing for 21 Days, #1 INHALER 2 Refills Prov: RAMON CALDERON MD 03/25/21 Problem Qualifiers RAMON CALDERON MD March 25, 2021 21:01
[2021-03-25 21:09] VITALS: BP 191/113
== END 2021-03-25 21:13 | disposition home or self-care (01) ==
LOC: ER 20:41
DX: J45.901 Unspecified asthma with (acute) exacerbation (principal); I10 Essential (primary) hypertension; F17.210 Nicotine dependence, cigarettes, uncomplicated; Z76.0 Encounter for issue of repeat prescription
CPT/HCPCS: 94640; 99283; J1100

== ENCOUNTER 2021-03-28 22:25 | Emergency (ER) | payer BC ==
[~2021-03-28] VITALS: Ht 185.4 cm; Wt 153.4 kg
[2021-03-28 22:25] VITALS: BP 177/110
--- NOTE | 2021-03-28 22:37 | PHYS DOC ---
Past History Past Medical History: Asthma, Hypertension Additional Past Medical Histor: obesity Past Surgical History: Tonsillectomy Smoking: Cigarettes Alcohol Use: Heavy Drug Use: None General Adult EDM: Chief Complaint: ABSCESS HPI: HPI: ".. I get these abscess on my head.. they have been there a long time.. I had them in [place] but couple tonight area more swollen than usual....I think they need drainage.. " Patient is a 30 year old male who presents with above hx and complaints keloids, cellulitis and abscess on scalp. Patient has history of keloid lesion to the scalp for years and past year have had occasional episodes where the keloids become infected. Patient had keloids even when he was in [place] has recently moved here in the past year. Patient does not remember his last tetanus vaccination. No recent travel outside the [facility]. No specific ill contacts. Patient denies any history immunosuppression. Patient does have numerous keloids to his scalp and also other areas on his body. There were some keloids that appear to be inflamed and had a fluctuant area which appeared to be cyst or abscess formation. Patient does have some adenopathy at nuchal line on scalp. Review of Systems: Review of Systems: Constitutional: Denies fever or chills Eyes: Denies change in visual acuity HENT: Denies nasal congestion or sore throat Respiratory: Denies cough or shortness of breath Cardiovascular: Denies chest pain or edema GI: Denies abdominal pain, nausea, vomiting, bloody stools or diarrhea : Denies dysuria Musculoskeletal: Denies back pain or joint pain Integument: Complains of keloids and abscess formation on his scalp Neurologic: Denies headache, focal weakness or sensory changes Endocrine: Denies polyuria or polydipsia Lymphatic: Denies swollen glands Psychiatric: History of anxiety Family History: Family History: Noncontributory to presentation Allergies: Allergies: Allergies Coded Allergies Type Severity Reaction Last Updated Verified No Known Drug Allergies 05/30/20 No Physical Exam: PE: Constitutional: Mild acute distress, non-toxic appearance. [] HENT: Normocephalic, atraumatic, bilateral external ears normal, oropharynx moist, no oral exudates, nose normal. Multiple keloids on scalp. Has 2 keloids that have collection of fluctuant material and appear to be infected. Does have some adenopathy on scalp line posterior neck Eyes: PERRLA, EOMI, conjunctiva normal, no discharge. [] Neck: Normal range of motion, no tenderness, supple, no stridor. [] Cardiovascular:Heart rate regular rhythm, no murmur. Monitor shows sinus rhythm. Lungs & Thorax: Bilateral breath sounds equal apex with scattered wheezes on auscultation [] Abdomen: Bowel sounds normal, soft, no tenderness, no masses, no pulsatile masses. Obese Skin: Warm, dry, no erythema, no rash. Multiple keloids. Keloids on scalp has to the. Has some cellulitis. Tattoos Back: No tenderness, no CVA tenderness. [] Extremities: No tenderness, no cyanosis, no clubbing, ROM intact, no edema. [] Neurologic: Alert and oriented X 3, moves all extremities on request, does have distal sensory,, no focal deficits noted. [] Psychologic: Affect anxious, judgement normal, mood normal. [] EKG: EKG: [] Radiology/Procedures: Radiology/Procedures: [] Heart Score: C/O Chest Pain: N/A Risk Factors: Risk Factors: DM, Current or recent (<one month) smoker, HTN, HLP, family history of CAD, obesity. Risk Scores: Score 0 - 3: 2.5% MACE over next 6 weeks - Discharge Home Score 4 - 6: 20.3% MACE over next 6 weeks - Admit for Clinical Observation Score 7 - 10: 72.7% MACE over next 6 weeks - Early Invasive Strategies Course & Med Decision Making: Course & Med Decision Making Pertinent Labs and Imaging studies reviewed. (See chart for details) Procedure note-aspiration of abscess. The 2 keloids that appear to be infected and had a collection of material. Cleaned with alcohol. Aspirated approximately 1 cm of purulent pus from both sites. This was sent for culture and sensitivity. Patient was started on Bactrim. Advised to use medicated shampoo daily. Also compresses of salt water or Epson salts may be helpful. Must follow-up primary care. Patient's tetanus was updated. Pt. to follow up pending cultures with primary. Impression: 1. Keloids 2. Cellulitis and abscess 3. History of hypertension 4. History of asthma 5. Hx. of Alcohol abuse [] Dragon Disclaimer: Dragon Disclaimer: This electronic medical record was generated, in whole or in part, using a voice recognition dictation system. Departure Departure: Referrals: PCP,NO (PCP) Scripts Sulfamethoxazole/Trimethoprim (BACTRIM DS TABLET) 1 Each Tablet 1 TAB PO BID for cellulitis for 10 Days, #20 TAB 0 Refills Prov: GASTON LUTZ MD 03/28/21 Dragroberto Disclaimer This chart was dictated in whole or in part using Voice Recognition software in a busy, high-work load, and often noisy Emergency Department environment. It may contain unintended and wholly unrecognized errors or omissions. Dragon Disclaimer This chart was dictated in whole or in part using Voice Recognition software in a busy, high-work load, and often noisy Emergency Department environment. It may contain unintended and wholly unrecognized errors or omissions. GASTON LUTZ MD March 28, 2021 22:37
[2021-03-28] MEDS ORDERED: TETANUS AND DIPHTHERIA TOX/PF 0.5 ML VIAL. VAX IM ONE (23:00)
[2021-03-28] MEDS ORDERED: SULF1TAB24 PO (23:01)
[2021-03-28] MEDS: SMZ/TMP 800/160MG TABLET. PO ONE (23:25)
[2021-03-28] MEDS: DIPH,PERTUSS(ACELL),TET VAC/PF 0.5 ML SYRINGE. VAX IM ONE (23:26)
== END 2021-03-28 23:25 | disposition home or self-care (01) ==
LOC: ER 22:25
DX: L03.811 Cellulitis of head [any part, except face] (principal); L02.811 Cutaneous abscess of head [any part, except face]; L91.0 Hypertrophic scar; I10 Essential (primary) hypertension; J45.909 Unspecified asthma, uncomplicated; F17.210 Nicotine dependence, cigarettes, uncomplicated; F10.20 Alcohol dependence, uncomplicated; Y90.9 Presence of alcohol in blood, level not specified
CPT/HCPCS: 10160; 90471; 90715; 99284

== ENCOUNTER 2021-05-08 14:18 | Emergency (ER) | payer BC ==
[~2021-05-08] VITALS: Ht 185.4 cm; Wt 150.0 kg
[~2021-05-08 14:18] MED LIST changes: +SULF1TAB24 PO
--- NOTE | 2021-05-08 14:41 | PHYS DOC ---
Past History Past Medical History: Asthma, Hypertension Additional Past Medical Histor: obesity Past Surgical History: Tonsillectomy Smoking: Cigarettes Alcohol Use: Heavy Drug Use: None General Adult EDM: Chief Complaint: SHORTNESS OF BREATH HPI: HPI: Patient is a 30-year-old male who presents to the ER today for shortness of breath and a nonproductive cough for 3 days. Patient reports believes he is having an asthma flare. Patient denies fevers, loss of taste or smell, nasal congestion or drainage, sore throat, chest pain, sick contacts. Patient is a current smoker. Patient has not been vaccinated for COVID-19. Patient does have a history of asthma but does not take any medications at home. Review of Systems: Review of Systems: 14 body systems of the review of systems have been reviewed. See HPI for pertinent positive and negative responses, otherwise all other systems are ne gative, nonpertinent or noncontributory Allergies: Allergies: Allergies Coded Allergies Type Severity Reaction Last Updated Verified No Known Drug Allergies 05/30/20 No Physical Exam: PE: Constitutional: Well developed, well nourished, no acute distress, non-toxic appearance. [] HENT: Normocephalic, atraumatic, bilateral external ears normal, oropharynx moist, no oral exudates, nose normal, pharynx without erythema. [] Eyes: PERRLA, EOMI, conjunctiva normal, no discharge. [] Neck: Normal range of motion, supple, no stridor, no cervical lymphadenopathy. [] Cardiovascular:Heart rate regular rhythm, no murmur [] Lungs & Thorax: Scattered wheezing noted throughout all lung latham. [] Abdomen: Bowel sounds normal, soft, no tenderness, no masses, no pulsatile masses. [] Skin: Warm, dry, no erythema, no rash. [] Back: Normal range of motion [] Extremities: No tenderness, no cyanosis, no clubbing, ROM intact, no edema. [] Neurologic: Alert and oriented X 3, normal motor function, normal sensory function, no focal deficits noted. [] Psychologic: Affect normal, judgement normal, mood normal. [] Current Patient Data: Labs: Laboratory Tests Test 05/08/21 15:39 05/08/21 15:57 Bedside Hemoglobin 16.0 gm/dL Bedside Hematocrit 47 % Bedside Sodium 142 mmol/L Bedside Potassium 3.6 mmol/L Bedside Chloride 105 mmol/L Bedside Total CO2 21 mmol/L Anion Gap 20 mmol/L Bedside Blood Urea Nitrogen 13 mg/dL Bedside Creatinine 0.9 mg/dL Glucose Level 85 mg/dL Bedside Ionized Calcium (Mustapha) 1.21 mmol/L White Blood Count 8.2 x10^3/uL Red Blood Count 5.33 x10^6/uL Hemoglobin 14.6 g/dL Hematocrit 43.8 % Mean Corpuscular Volume 82 fL Mean Corpuscular Hemoglobin 27 pg Mean Corpuscular Hemoglobin Concent 33 g/dL Red Cell Distribution Width 14.8 % Platelet Count 262 x10^3/uL Neutrophils (%) (Auto) 58 % Lymphocytes (%) (Auto) 27 % Monocytes (%) (Auto) 8 % Eosinophils (%) (Auto) 6 % Basophils (%) (Auto) 1 % Neutrophils # (Auto) 4.8 x10^3uL Lymphocytes # (Auto) 2.2 x10^3/uL Monocytes # (Auto) 0.7 x10^3/uL Eosinophils # (Auto) 0.5 x10^3/uL Basophils # (Auto) 0.1 x10^3/uL Current Medications Medications (Trade) Dose Ordered Sig/Brooklynn Route PRN Reason Start Time Stop Time Status Last Admin Dose Admin Albuterol/ Ipratropium (Duoneb) 3 ml 1X ONCE NEB 05/08/21 14:45 05/08/21 14:46 DC 05/08/21 14:50 EKG: EKG: [] Radiology/Procedures: Radiology/Procedures: [] Heart Score: C/O Chest Pain: No Risk Factors: Risk Factors: DM, Current or recent (<one month) smoker, HTN, HLP, family history of CAD, obesity. Risk Scores: Score 0 - 3: 2.5% MACE over next 6 weeks - Discharge Home Score 4 - 6: 20.3% MACE over next 6 weeks - Admit for Clinical Observation Score 7 - 10: 72.7% MACE over next 6 weeks - Early Invasive Strategies Course & Med Decision Making: Course & Med Decision Making Pertinent Labs and Imaging studies reviewed. (See chart for details) Patient is a 30-year-old male being seen in the ER today for an asthma exacerbation. He reports shortness of breath and a nonproductive cough for 3 days. He does have a history of asthma but does not take any medications at [facility] [employer]. Patient was given a DuoNeb treatment in the ER as he had wheezing noted throughout all lung latham. Patient's wheezing has improved he does have some mild scattered wheezing noted in all lung latham. Patient reports that he feels much better. He is not hypoxic, nonlabored, no acute distress, no tachypnea. Patient was noted to have elevated blood pressure readings in the ER. Upon arrival his blood pressure was 160s over 100s. Upon reassessment it was 190s over 128. Patient does have a history of hypertension but does not take any medications at home. Patient is unsure of what medications he is supposed to be taking for his hypertension. Lab work performed in the ER. Patient offered a chest x-ray but refused. Lab work unremarkable, normal kidney function. Patient educated on the need to follow-up with a primary care provider regarding his elevated blood pressure readings.. I discussed with patient all findings as well as the need to follow-up with PCP for further evaluation and treatment or return to the ER if any new or worsening symptoms. Strict return precautions were also discussed at length. Patient voiced understanding and agreement with the plan. Patient is hemodynamically stable at the time of disposition. Upon discharge patient is requesting an albuterol inhaler to go home with. Patient states that if he does not get an albuterol inhaler to go home with he will be right back in the ER. Patient ordered an albuterol inhaler for home. Dragon Disclaimer: Luis Disclaimer: This electronic medical record was generated, in whole or in part, using a voice recognition dictation system. Departure Departure: Impression: Primary Impression: Asthma exacerbation Qualified Codes: J45.21 - Mild intermittent asthma with (acute) exacerbation Disposition: HOME / SELF CARE / HOMELESS Condition: GOOD Referrals: PCP,NO (PCP) Patient Instructions: Asthma, Adult, Smoking Cessation Additional Instructions: Thank you for choosing [facility] and allowing me to participate in your care. You were seen in the ER today for an asthma exacerbation. You were given a breathing treatment and reported feeling symptom improvement following. You are being discharged home with a steroid please take as directed. You are also being sent home with a prescription for an albuterol inhaler. You can take 2 puffs every 6-8 hours for shortness of breath. Please follow up with your primary care provider tomorrow regarding your ER visit. Your blood pressure was elevated in the ER today. We performed lab work which was unremarkable. You need to follow-up with your primary care provider regarding your blood pressure and get on blood pressure medications. If your symptoms worsen or you develop increased shortness of breath, chest pain, difficulty swallowing, fevers, please return. You are also given information today on smoking cessation. Given your chronic lung condition and is necessary that you decrease and discontinue cigarette use. EMERGENCY DEPARTMENT GENERAL DISCHARGE INSTRUCTIONS Thank you for coming to [facility] (ED) today and trusting us with you care. We trust that you had a positivie experience in our Emergency Department. If you wish to speak to the department management, you may call the director at [phone]. YOUR FOLLOW UP INSTRUCTIONS ARE FOLLOWS: 1. Do you have a private Doctor? If you do not have a private doctor, please ask for a resource list of physicians or clinics that may be able to assist you with follow up care. 2. The Emergency Physician has interpreted your x-rays. The X-Ray specialist will also review them. If there is a change in the findings, you will be notified in 48 hours when at all possible. 3. A lab test or culture has been done, your results will be reviewed and you will be notified if you need a change in treatment. ADDITIONAL INSTRUCTIONS AND INFORMATION: 1. Your care today has been supervised by a physician who is specially trained in emergency care. Many problems require more than one evaluation for a complete diagnosis and treatment. We recommend that you schedule your follow up appointment as recommended to ensure complete treatment of you illness or injury. If you are unable to obtain follow up care and continue to have a problem, or if your condition worsens, we recommend that you return to the ED. 2. We are not able to safely determine your condition over the phone nor are we able to give sound medical advice over the phone. For these safety reasons, if you call for medical advice we will ask you to come to the ED for further evaluation. 3. If you have any questions regarding these discharge instructions please call the ED at [phone]. SAFETY INFORMATION: In the interest of safety, wellness, and injury prevention; we encourage you to wear your sealbelt, if you smoke; quite smoking, and we encourage family to use a protective helmet for bicycling and other sporting events that present an increased risk for head injury. IF YOUR SYMPTOMS WORSEN OR NEW SYMPTOMS DEVELOP, OR YOU HAVE CONCERNS ABOUT YOUR CONDITION; OR IF YOUR CONDITION WORSENS WHILE YOU ARE WAITING FOR YOUR FOLLOW UP APPOINTMENT; EITHER CONTACT YOUR PRIMARY CARE DOCTOR, THE PHYSICIAN WHOSE NAME AND NUMBER YOU WERE GIVEN, OR RETURN TO THE ED IMMEDIATELY. Scripts Prednisone (PREDNISONE) 20 Mg Tablet 1 TAB PO TID for asthma for 5 Days, #15 TAB 0 Refills Prov: YEMI ANN APRN 05/08/21 Albuterol Sulfate (PROAIR HFA INHALER) 8.5 Gm Hfa.aer.ad 2 PUFF IH PRN Q4-6HRS PRN for wheezing for 21 Days, #1 INHALER 0 Refills Prov: YEMI ANN APRN 05/08/21 YEMI ANN APRN May 08, 2021 14:41
[2021-05-08] MEDS ORDERED: IPRATRPIUM/ALBUTEROL 0.5/2.5MG 3 ML NEBU. NEB ONE (14:45)
[2021-05-08 16:30] LABS: BASO # 0.1 x10^3/uL (0.0-0.2); BASO % 1 % (0-3); EOS # 0.5 x10^3/uL (0.0-0.7); EOS % 6 % (0-3); HEMATOCRIT 43.8 % (39.0-53.0); HEMOGLOBIN 14.6 g/dL (13.0-17.5); LYMPH # 2.2 x10^3/uL (1.0-4.8); LYMPH % 27 % (24-48); MEAN CORPUSCULAR HEMOGLOBIN 27 pg (25-35); MEAN CORPUSCULAR HGB CONC 33 g/dL (31-37); MEAN CORPUSCULAR VOLUME 82 fL (79-100); MONO # 0.7 x10^3/uL (0.0-1.1); MONO % 8 % (0-9); NEUT # 4.8 x10^3uL (1.8-7.7); NEUT % 58 % (31-73); PLATELET COUNT 262 x10^3/uL (140-400); RED BLOOD COUNT 5.33 x10^6/uL (4.30-5.70); RED CELL DISTRIBUTION WIDTH 14.8 % (11.5-14.5); WHITE BLOOD COUNT 8.2 x10^3/uL (4.0-11.0)
[2021-05-08 17:16] LABS: POTASSIUM ISTAT 3.6 mmol/L (3.5-5.0)
[2021-05-08] MEDS ORDERED: PRED20TA PO (17:34)
[2021-05-08] MEDS ORDERED: ALBU2.5V8 IH (17:34)
[2021-05-08 17:46] VITALS: BP 185/100
[2021-05-08] MEDS ORDERED: ALBUTEROL SULFATE 8GM INHALER. INH ONE (18:00)
== END 2021-05-08 17:48 | disposition home or self-care (01) ==
LOC: ER 14:18
DX: J45.901 Unspecified asthma with (acute) exacerbation (principal); I10 Essential (primary) hypertension; F17.210 Nicotine dependence, cigarettes, uncomplicated
CPT/HCPCS: 36415; 80047; 85025; 94640; 99283; 99284-25

== ENCOUNTER 2021-07-30 22:24 | Emergency (ER) | payer BC ==
[~2021-07-30] VITALS: Ht 185.4 cm; Wt 150.0 kg
--- NOTE | 2021-07-30 22:32 | PHYS DOC ---
Past History Past Medical History: Asthma, Hypertension Additional Past Medical Histor: obesity Past Surgical History: No Surgical History Smoking: Cigarettes Alcohol Use: Heavy Drug Use: None Adult General Chief Complaint Chief Complaint: ASTHMA HPI HPI Patient is a 30-year-old male presenting for asthma exacerbation. Has history of asthma that is typically well controlled with as needed albuterol inhaler rescue medication only. States he typically has exacerbations like this around this time a year when the seasons change. Reports symptom onset approximately 1 week ago, also states he has history of hypertension. He has been out of all home blood pressure medication for which he forgot what he takes in addition to albuterol inhaler. I personally have given him several inhalers in the past, he states he has not followed up with outpatient primary care for ER follow-up status post prior ER visits. On arrival, he is complaining of wheezing and shortness of breath only, no vision changes, chest pain, ripping or tearing sensation in chest, productive cough, abdominal pain, nausea vomit diarrhea, motor or sensory or neuro function changes. No known sick contacts, no fever, he has not been vaccinated against COVID-19 Review of Systems Review of Systems Fourteen body systems of review of systems have been reviewed. See HPI for pertinent positives and negative responses, other horne all other systems are negative, non-pertinent or non-contributory Current Medications Current Medications Current Medications Medications (Trade) Dose Ordered Sig/Brooklynn Start Time Stop Time Status Last Admin Dose Admin Albuterol/ Ipratropium (Duoneb) 3 ml 1X ONCE 07/30/21 22:30 07/30/21 22:31 UNV Allergies Allergies Allergies Coded Allergies Type Severity Reaction Last Updated Verified No Known Drug Allergies 05/30/20 No Physical Exam Physical Exam Constitutional: Well developed, well nourished, nontoxic in appearance but in moderate respiratory distress with increased work of breathing and audible wheezes while ambulating into ER room HENT: Normocephalic, atraumatic, bilateral external ears normal, oropharynx mois t, no oral exudates, nose normal. Eyes: PERRLA, EOMI, conjunctiva normal, no discharge. Neck: Normal range of motion, no tenderness, supple, no stridor. Cardiovascular: Heart rate regular, sinus rhythm, no murmurs rubs or gallops Lungs & Thorax: Increased work of breathing with diffuse wheezes present globally in all lobes that are audible even without auscultation of the ches t/lungs Abdomen: Bowel sounds normal, soft, no tenderness, no masses, no pulsatile masses. Nonsurgical abdomen, no peritoneal signs Skin: Warm, dry, no erythema, no rash. Back: No tenderness, no CVA tenderness. Extremities: No tenderness, no cyanosis, no clubbing, ROM intact, no edema. Neurologic: Alert and oriented X 3, grossly normal motor & sensory function, no focal deficits noted. Psychologic: Affect normal, judgement normal, mood normal. Current Patient Data Vital Signs Vital Signs Date Time Temp Pulse Resp B/P (MAP) Pulse Ox O2 Delivery O2 Flow Rate FiO2 07/30/21 22:32 87 36 201/139 (159) 97 Room Air Vital Signs Date Time Temp Pulse Resp B/P (MAP) Pulse Ox O2 Delivery O2 Flow Rate FiO2 07/30/21 22:34 96 Room Air 07/30/21 22:32 87 36 201/139 (159) Lab Results Laboratory Tests Test 07/30/21 22:45 White Blood Count 9.3 x10^3/uL Red Blood Count 5.28 x10^6/uL Hemoglobin 14.3 g/dL Hematocrit 43.0 % Mean Corpuscular Volume 82 fL Mean Corpuscular Hemoglobin 27 pg Mean Corpuscular Hemoglobin Concent 33 g/dL Red Cell Distribution Width 15.5 % Platelet Count 258 x10^3/uL Neutrophils (%) (Auto) 51 % Lymphocytes (%) (Auto) 30 % Monocytes (%) (Auto) 8 % Eosinophils (%) (Auto) 9 % Basophils (%) (Auto) 1 % Neutrophils # (Auto) 4.7 x10^3uL Lymphocytes # (Auto) 2.8 x10^3/uL Monocytes # (Auto) 0.8 x10^3/uL Eosinophils # (Auto) 0.9 x10^3/uL Basophils # (Auto) 0.1 x10^3/uL Sodium Level 135 mmol/L Potassium Level 3.6 mmol/L Chloride Level 98 mmol/L Carbon Dioxide Level 25 mmol/L Anion Gap 12 Blood Urea Nitrogen 12 mg/dL Creatinine 1.0 mg/dL Estimated GFR (Cockcroft-Gault) 105.5 Glucose Level 129 mg/dL Calcium Level 9.2 mg/dL Troponin I Quantitative < 0.017 ng/mL Current Medications Medications (Trade) Dose Ordered Sig/Brooklynn Route PRN Reason Start Time Stop Time Status Last Admin Dose Admin Albuterol/ Ipratropium (Duoneb) 3 ml 1X ONCE NEB 07/30/21 22:30 07/30/21 22:57 DC 07/30/21 22:33 Albuterol/ Ipratropium (Duoneb) 3 ml 1X ONCE NEB 07/30/21 22:45 07/30/21 22:57 DC Prednisone (Prednisone) 60 mg 1X ONCE PO 07/30/21 22:45 07/30/21 22:57 DC 07/30/21 22:47 EKG EKG EKG ordered and interpreted by myself at 2313 hrs. is sinus rhythm at 72 bpm, unremarkable intervals, no axis deviation, no acute ischemic findings, no STEMI Radiology/Procedures Radiology/Procedures Exam: Chest one view INDICATION: Shortness of breath TECHNIQUE: Frontal view of the chest Comparisons: 01/19/2021 FINDINGS: The cardiomediastinal silhouette and pulmonary vessels are within normal limits. Subtle patchy bibasilar airspace disease. No pleural effusion. IMPRESSION: Subtle patchy bibasilar airspace disease may be infectious or inflammatory in etiology. Electronically signed by: Ryan Rincon MD (07/30/2021 11:12 PM) [facility] Heart Score C/O Chest Pain: No HEART Score for Chest Pain: HEART Score for Chest Pain Response (Comments) Value History Slighlty/Non-Suspicious 0 ECG Normal 0 Age < 45 0 Risk Factors No Risk Factors 0 Troponin < Normal Limit 0 Total 0 Risk Factors: Risk Factors: DM, Current or recent (<one month) smoker, HTN, HLP, family history of CAD, obesity. Risk Scores: Risk Factors: DM, Current or recent (<one month) smoker, HTN, HLP, family history of CAD, obesity. Course & Med Decision Making Course & Med Decision Making Airway patent, increased work of breathing, IV access and vitals obtained concerning for marked hypertension and tachypnea HPI, physical exam and comprehensive ER work-up nonconcerning for any emergent or surgical issues. Patient suffering from acute exacerbation of asthma in ad dition to hypertension. He has been out of his rescue inhaler and home hypertensive medication which he cannot remember Patient's condition markedly improved with nebulized DuoNeb and steroids. I reviewed all findings with patient. 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 As such, patient given amlodipine with instructions to taper up as necessary and keep blood pressure log for follow-up in outpatient setting with primary care provider. Strict return precautions were discussed with good understanding by patient, all questions and concerns addressed prior to ER departure Luis Disclaimer Dragon Disclaimer This electronic medical record was generated, in whole or in part, using a voice recognition dictation system. Departure Departure: Impression: Primary Impression: Asthma exacerbation Additional Impression: Hypertension Referrals: PCP,NO (PCP) Patient Instructions: Asthma, Adult, Hypertension Scripts Prednisone (PREDNISONE) 20 Mg Tablet 60 MG PO DAILY for asthma exacerbation for 4 Days, #12 TAB Prov: ARABELLA SAMUELS DO 07/30/21 Albuterol Sulfate (PROVENTIL HFA INHALER) 6.7 Gm Hfa.aer.ad 1 PUFF INH PRN Q4HRS PRN for FOR ASTHMA, #1 EACH 0 Refills Prov: ARABELLA SAMUELS DO 07/30/21 Amlodipine Besylate (AMLODIPINE BESYLATE) 5 Mg Tablet 1 TAB PO DAILY for hypertension, #30 TAB 1 Refill Prov: ARABELLA SAMUELS DO 07/30/21 Problem Qualifiers ARABELLA SAMUELS DO Jul 30, 2021 22:32
[2021-07-30] MEDS: IPRATRPIUM/ALBUTEROL 0.5/2.5MG 3 ML NEBU. NEB ONE ×2 (22:33→22:45)
[2021-07-30] MEDS: predniSONE 20 MG TABLET PO ONE (22:47)
--- NOTE | 2021-07-30 23:15 | RAD ---
Exam: Chest one view INDICATION: Shortness of breath TECHNIQUE: Frontal view of the chest Comparisons: 01/19/2021 FINDINGS: The cardiomediastinal silhouette and pulmonary vessels are within normal limits. Subtle patchy bibasilar airspace disease. No pleural effusion. IMPRESSION: Subtle patchy bibasilar airspace disease may be infectious or inflammatory in etiology. Electronically signed by: Ryan Rincon MD (07/30/2021 11:12 PM) CRISTOPHER
[2021-07-30 23:17] LABS: BASO # 0.1 x10^3/uL (0.0-0.2); BASO % 1 % (0-3); EOS # 0.9 x10^3/uL (0.0-0.7); EOS % 9 % (0-3); HEMOGLOBIN 14.3 g/dL (13.0-17.5); LYMPH # 2.8 x10^3/uL (1.0-4.8); LYMPH % 30 % (24-48); MEAN CORPUSCULAR HEMOGLOBIN 27 pg (25-35); MEAN CORPUSCULAR HGB CONC 33 g/dL (31-37); MEAN CORPUSCULAR VOLUME 82 fL (79-100); MONO # 0.8 x10^3/uL (0.0-1.1); MONO % 8 % (0-9); NEUT # 4.7 x10^3uL (1.8-7.7); NEUT % 51 % (31-73); PLATELET COUNT 258 x10^3/uL (140-400); RED BLOOD COUNT 5.28 x10^6/uL (4.30-5.70); RED CELL DISTRIBUTION WIDTH 15.5 % (11.5-14.5); WHITE BLOOD COUNT 9.3 x10^3/uL (4.0-11.0)
[2021-07-30 23:28] LABS: CALCIUM 9.2 mg/dL (8.5-10.1); GFR 105.5; POTASSIUM 3.6 mmol/L (3.5-5.1)
[2021-07-30] MEDS: ALBUTEROL SULFATE 8GM INHALER. INH ONE (23:45)
[2021-07-30] MEDS ORDERED: PRED20TA PO (23:47)
[2021-07-30] MEDS ORDERED: ALBU2.5V8 INH (23:47)
[2021-07-30] MEDS ORDERED: AMLO-186 PO (23:47)
[2021-07-30 23:48] VITALS: BP 213/101
[2021-07-30] MEDS: amLODIPine BESYLATE 5 MG TABLET PO ONE (23:48)
--- NOTE | 2021-07-31 01:14 | EKG ---
[address] [address] Test Date: 2021-07-30 Test Time: 23:07:34 Pat Name: YOEL SUTTON Department: Room: Gender: M Energy Efficiency Specialist: : 1990 Requested By: ARABELLA SAMUELS Order Number: [id number] Reading MD: Jacky Ambrose Measurements Intervals [place] Rate: 72 P: 42 RI: 164 QRS: 66 QRSD: 104 T: 16 QT: 402 QTc: 442 Interpretive Statements SINUS RHYTHM NORMAL ECG Electronically Signed On 08-05-2021 13:02:09 CDT by Jacky Ambrose
== END 2021-07-31 00:07 | disposition home or self-care (01) ==
LOC: ER 22:24
DX: J45.901 Unspecified asthma with (acute) exacerbation (principal); I10 Essential (primary) hypertension; F17.210 Nicotine dependence, cigarettes, uncomplicated
CPT/HCPCS: 36415; 71045; 80048; 84484; 85025; 93005; 94640; 99285; J7512; 94664

== ENCOUNTER 2021-09-04 00:45 | Emergency (ER) | payer BC ==
[~2021-09-04] VITALS: Ht 185.4 cm; Wt 150.0 kg
[~2021-09-04 00:45] MED LIST changes: +ALBU2.5V8 INH; +AMLO-186 PO
[2021-09-04 01:06] VITALS: BP 180/118
--- NOTE | 2021-09-04 01:13 | PHYS DOC ---
Past History Past Medical History: Asthma, Hypertension Additional Past Medical Histor: obesity Past Surgical History: No Surgical History Smoking: Cigarettes Alcohol Use: Heavy Drug Use: None General Adult EDM: Chief Complaint: ASTHMA HPI: HPI: "My asthma getting to me tonight... " Patient is a 30 year old male who presents with reports of acute asthma exacerbation. Pt. follows with with no primary care. Has been managing his asthma to almost monthly visits to the ER for an inhaler. Patient has known history of asthma since childhood. Has known history of hypertension and obesity. Patient does continue to smoke cigarettes. Patient does not know his best peak flow. Patient has not gotten flu vaccination, COVID vaccination or Pneumovax. Patient denies any recent travel. No specific ill contacts. No history of fever or chills. Does have history of admissions for asthma exacerbation. Review of Systems: Review of Systems: Constitutional: Denies fever or chills Eyes: Denies change in visual acuity HENT: Denies nasal congestion or sore throat Respiratory: Complains of cough and wheezing Cardiovascular: Denies chest pain or edema GI: Denies abdominal pain, nausea, vomiting, bloody stools or diarrhea : Denies dysuria Musculoskeletal: Denies back pain or joint pain Integument: Denies rash Neurologic: Denies headache, focal weakness or sensory changes Endocrine: Denies polyuria or polydipsia Lymphatic: Denies swollen glands Psychiatric: Denies depression or anxiety Family History: Family History: Noncontributory to presentation Current Medications: Current Meds: Current Medications Medications (Trade) Dose Ordered Sig/Brooklynn Start Time Stop Time Status Last Admin Dose Admin Albuterol Sulfate (Ventolin Hfa Inhaler) 2 puff 1X ONCE 09/04/21 01:30 09/04/21 01:31 09/04/21 01:04 2 PUFF Prednisone (Prednisone) 60 mg 1X ONCE 09/04/21 01:30 09/04/21 01:31 Allergies: Allergies: Allergies Coded Allergies Type Severity Reaction Last Updated Verified No Known Drug Allergies 05/30/20 No Physical Exam: PE: Constitutional: Morbidly obese and moderate acute distress, non-toxic appearance. [] HENT: Normocephalic, atraumatic, bilateral external ears normal, oropharynx moist, no oral exudates, nose swollen turbinates clear rhinorrhea Eyes: PERRLA, EOMI, conjunctiva normal, no discharge. [] Neck: Normal range of motion, no tenderness, supple, no stridor. [] Cardiovascular: Tachycardia heart rate regular rhythm, no murmur [] Lungs & Thorax: Bilateral breath sounds to apex with scattered wheezing throughout on auscultation [] Abdomen: Bowel sounds normal, soft, no tenderness, no masses, no pulsatile masses. Obese. Skin: Warm, dry, no erythema, no rash. Tattoos. Back: No tenderness, no CVA tenderness. [] Extremities: No tenderness, no cyanosis, no clubbing, ROM intact, . No cording in legs. Trace ankle edema Neurologic: Alert and oriented X 3, normal motor function, normal sensory function, no focal deficits noted. [] Psychologic: Affect normal, judgement normal, mood normal. [] Current Patient Data: Vital Signs: Vital Signs Date Time Temp Pulse Resp B/P (MAP) Pulse Ox O2 Delivery O2 Flow Rate FiO2 09/04/21 01:04 97 Room Air EKG: EKG: [] Radiology/Procedures: Radiology/Procedures: [] Heart Score: C/O Chest Pain: No Risk Factors: Risk Factors: DM, Current or recent (<one month) smoker, HTN, HLP, family history of CAD, obesity. Risk Scores: Score 0 - 3: 2.5% MACE over next 6 weeks - Discharge Home Score 4 - 6: 20.3% MACE over next 6 weeks - Admit for Clinical Observation Score 7 - 10: 72.7% MACE over next 6 weeks - Early Invasive Strategies Course & Med Decision Making: Course & Med Decision Making Pertinent Labs and Imaging studies reviewed. (See chart for details) Encourage patient to follow-up with primary care. Patient use MDI 2 puffs 4 times a day. Patient take prednisone 50 mg a day for next 5 days. Next week encourage patient follow-up with primary care or urgent care clinic and get flu vaccination, Pneumovax and Covid vaccination. Patient encouraged to stop smoking. Impression: 1. Asthma exacerbation 2. Tobacco use 3. Noncompliance with medical recommendations 4. Morbid obesity [] Dragon Disclaimer: Dragon Disclaimer: This electronic medical record was generated, in whole or in part, using a voice recognition dictation system. Departure Departure: Referrals: PCP,WILLIE (PCP) Scripts Prednisone (PREDNISONE) 50 Mg Tablet 50 MG PO DAILY for asthma exacerbaton for 5 Days, #5 TAB Prov: GASTON LUTZ MD 09/04/21 Luis Disclaimer This chart was dictated in whole or in part using Voice Recognition software in a busy, high-work load, and often noisy Emergency Department environment. It may contain unintended and wholly unrecognized errors or omissions. GASTON LUTZ MD Sep 04, 2021 01:13
[2021-09-04] MEDS ORDERED: ALBUTEROL SULFATE 8GM INHALER. INH ONE (01:30)
[2021-09-04] MEDS ORDERED: predniSONE 20 MG TABLET PO ONE (01:30)
[2021-09-04] MEDS ORDERED: PRED50TA PO (01:42)
== END 2021-09-04 01:52 | disposition home or self-care (01) ==
LOC: ER 00:45
DX: J45.901 Unspecified asthma with (acute) exacerbation (principal); E66.01 Morbid (severe) obesity due to excess calories; I10 Essential (primary) hypertension; F17.210 Nicotine dependence, cigarettes, uncomplicated; F10.20 Alcohol dependence, uncomplicated; Z91.19 Patient's noncompliance with other medical treatment and regimen; Z68.41 Body mass index [BMI] 40.0-44.9, adult; Y90.9 Presence of alcohol in blood, level not specified
CPT/HCPCS: 94640; 99283; J7512; 94664

== ENCOUNTER 2021-09-19 21:54 | Emergency (ER) | payer BC ==
[~2021-09-19] VITALS: Ht 185.4 cm; Wt 150.3 kg
[~2021-09-19 21:54] MED LIST changes: +PRED50TA PO
--- NOTE | 2021-09-19 21:57 | PHYS DOC ---
Past History Past Medical History: Asthma, Hypertension Additional Past Medical Histor: obesity Past Surgical History: No Surgical History Smoking: Cigarettes Alcohol Use: Heavy Drug Use: None General Adult HPI: HPI: Patient is a 30 year old male who presents with above hx and complaints of asthma exacerbation. Has been seen several times in ED for exacerbations, last visit was Sep.04. Pt. has not been followilng with a primary. Patient does continue to smoke cigarettes. Patient does not know his best peak flow. Patient has had asthma since childhood. Has known history of hypertension and obesity. Patient has not gotten a flu vaccination, patient has not gotten Pneumovax, patient has not gotten the Covid vaccination. Patient denies any recent travel. No specific history of ill contacts. No complaints of fever chill cough. Does have prior history of admissions for asthma exacerbations. No history of intubations for his asthma exacerbations. No history immunosuppression. Patient currently out of his inhaler that was issued on September 04. Review of Systems: Review of Systems: Constitutional: Denies fever or chills Eyes: Denies change in visual acuity HENT: Denies nasal congestion or sore throat Respiratory: Complains of cough and wheezing Cardiovascular: Denies chest pain or edema GI: Denies abdominal pain, nausea, vomiting, bloody stools or diarrhea : Denies dysuria Musculoskeletal: Denies back pain or joint pain Integument: Denies rash Neurologic: Denies headache, focal weakness or sensory changes Endocrine: Denies polyuria or polydipsia Lymphatic: Denies swollen glands Psychiatric: Denies depression or anxiety Family History: Family History: Noncontributory presentation. Current Medications: Current Meds: See nursing for home meds Allergies: Allergies: Allergies Coded Allergies Type Severity Reaction Last Updated Verified No Known Drug Allergies 05/30/20 No Physical Exam: PE: Constitutional: no acute distress, non-toxic appearance. Long smell of tobacco smoke about his person. HENT: Normocephalic, atraumatic, bilateral external ears normal, oropharynx moist, no oral exudates, nose swollen turbinates clear rhinorrhea. Eyes: PERRLA, EOMI, conjunctiva normal, no discharge. [] Neck: Normal range of motion, no tenderness, supple, no stridor. More than 17 inches circumference Cardiovascular: Tachycardia heart rate regular rhythm, no murmur [] Lungs & Thorax: Bilateral breath sounds equal apex with scattered wheezes throughout on auscultation [] Abdomen: Bowel sounds normal, soft, no tenderness, no masses, no pulsatile masses. Obese. Skin: Warm, dry, no erythema, no rash. Multiple tattoos Back: No tenderness, no CVA tenderness. [] Extremities: No tenderness, no cyanosis, no clubbing, ROM intact, no edema. No cording. Neurologic: Alert and oriented X 3, normal motor function, normal sensory function, no focal deficits noted. [] Psychologic: Affect anxious, judgement normal, mood normal. [] EKG: EKG: [] Radiology/Procedures: Radiology/Procedures: [] Heart Score: C/O Chest Pain: No Risk Factors: Risk Factors: DM, Current or recent (<one month) smoker, HTN, HLP, family hist ory of CAD, obesity. Risk Scores: Score 0 - 3: 2.5% MACE over next 6 weeks - Discharge Home Score 4 - 6: 20.3% MACE over next 6 weeks - Admit for Clinical Observation Score 7 - 10: 72.7% MACE over next 6 weeks - Early Invasive Strategies Course & Med Decision Making: Course & Med Decision Making Pertinent Labs and Imaging studies reviewed. (See chart for details) Patient strongly encouraged to follow-up with her primary care. Patient given referral sources for primary care and [facility]. Patient use MDI 2 puffs 4 times a day. Will use Depo-Medrol injection for his steroid taper. Patient encouraged strongly to stop smoking. Patient encouraged to get Pneumovax, flu vaccination and Covid vaccination. Patient encouraged to follow- up for his elevated blood pressure with her primary care. Impression: 1. Asthma Exerbation 2. Noncompliance with medical regimen 3. Continued tobacco use [] Dragon Disclaimer: Dragon Disclaimer: This electronic medical record was generated, in whole or in part, using a voice recognition dictation system. Departure Departure: Referrals: PCP,WILLIE (PCP) Luis Disclaimer This chart was dictated in whole or in part using Voice Recognition software in a busy, high-work load, and often noisy Emergency Department environment. It may contain unintended and wholly unrecognized errors or omissions. GASTON LUTZ MD Sep 19, 2021 21:57
[2021-09-19] MEDS ORDERED: IPRATRPIUM/ALBUTEROL 0.5/2.5MG 3 ML NEBU. ONE (21:58)
[2021-09-19] MEDS: methylPREDNISolone ACETATE 40 MG/ML VIAL. IM ONE (22:10)
[2021-09-19] MEDS: IPRATRPIUM/ALBUTEROL 0.5/2.5MG 3 ML NEBU. NEB ONE (22:10)
[2021-09-19] MEDS: ALBUTEROL SULFATE 8GM INHALER. INH ONE (22:10)
[2021-09-19 23:09] LABS: INFLUENZA A PATIENT NEGATIVE (NEGATIVE); INFLUENZA B PATIENT NEGATIVE (NEGATIVE)
[2021-09-19 23:45] VITALS: BP 160/96
== END 2021-09-20 00:30 | disposition home or self-care (01) ==
LOC: ER 21:54
DX: J45.901 Unspecified asthma with (acute) exacerbation (principal); I10 Essential (primary) hypertension; F17.210 Nicotine dependence, cigarettes, uncomplicated; F10.20 Alcohol dependence, uncomplicated; Z20.822 Contact with and (suspected) exposure to COVID-19; Z91.19 Patient's noncompliance with other medical treatment and regimen; Y90.9 Presence of alcohol in blood, level not specified
CPT/HCPCS: 87426; 87804; 94640; 96372; 99283; J1030; 94664

== ENCOUNTER 2021-12-16 06:59 | Emergency (ER) | payer BC ==
[~2021-12-16] VITALS: Ht 185.4 cm; Wt 127.0 kg
[2021-12-16] MEDS ORDERED: methylPREDNISolone SOD SUCC PF 125 MG/2 ML VIAL. IV ONE (07:15)
[2021-12-16] MEDS ORDERED: IPRATRPIUM/ALBUTEROL 0.5/2.5MG 3 ML NEBU. NEB ONE ×2 (07:15→08:15)
--- NOTE | 2021-12-16 07:19 | PHYS DOC ---
Past History Past Medical History: Asthma, Hypertension Additional Past Medical Histor: obesity Past Surgical History: No Surgical History Smoking: Cigarettes Alcohol Use: None Drug Use: None Adult General HPI HPI Patient is a 31-year-old male presenting for shortness of breath. This is an acute on chronic issue. Has history of hypertension and asthma which he has not followed up with an outpatient setting with primary care for chronic management. Typically seeks all care at our ER, I have taken care of patient numerous times and send him home with new prescriptions for his previously prescribed 20 mg lisinopril and albuterol rescue inhaler. Nonetheless, patient has run out of both of these medications and has been out for over a month. Cites increased shortness of breath for past 48 hours. States he is unsure if recent upper respiratory symptoms such as nasal drainage, congestion, and a dry nonproductive cough started flaring up his asthma, if it is his ongoing cigarette abuse, or if it was recently cold weather front. He is here complaining of classic asthma symptoms such as wheezing and inability to catch his breath without any hemoptysis, long distance travel, estrogen use etc. Review of Systems Review of Systems Fourteen body systems of review of systems have been reviewed. See HPI for pertinent positives and negative responses, other horne all other systems are negative, non-pertinent or non-contributory Allergies Allergies Allergies Coded Allergies Type Severity Reaction Last Updated Verified No Known Drug Allergies 05/30/20 No Physical Exam Physical Exam General: Appears well, obese, non toxic, and comfortable Skin: Warm, diaphoretic. Normal for ethnicity. HEENT: Atraumatic. PERRLA. Rhinorrhea and congestion. Nasal turbinates boggy b/l. Moist mucous membranes. Uvula midline. Maintaining secretions. No phonation changes. Neck: Trachea midline. Normal ROM. No stridor. Respiratory: Increased work of breathing, extensive wheezing present globally worse during expiration, no obvious accessory muscle usage or signs of impending respiratory failure Cardiovascular: Regular rate and rhythm. Normal peripheral perfusion. Abdomen: Soft. Non tender. No distension. Back: Normal ROM. Musculoskeletal: No swelling or deformity. Neuro: Alert and oriented x 4. MAEE. Lymph: No cervical LAD. Psych: Normal affect and mood. Current Patient Data Vital Signs Vital Signs Date Time Temp Pulse Resp B/P (MAP) Pulse Ox O2 Delivery O2 Flow Rate FiO2 12/16/21 07:19 95 Room Air 12/16/21 07:43 75 207/126 12/16/21 07:49 98.9 24 Vital Signs Date Time Temp Pulse Resp B/P (MAP) Pulse Ox O2 Delivery O2 Flow Rate FiO2 12/16/21 07:49 98.9 88 24 207/126 (153) 97 Room Air Lab Results Laboratory Tests Test 12/16/21 07:20 White Blood Count 7.5 x10^3/uL Red Blood Count 5.07 x10^6/uL Hemoglobin 13.8 g/dL Hematocrit 41.8 % Mean Corpuscular Volume 83 fL Mean Corpuscular Hemoglobin 27 pg Mean Corpuscular Hemoglobin Concent 33 g/dL Red Cell Distribution Width 15.5 % Platelet Count 230 x10^3/uL Neutrophils (%) (Auto) 53 % Lymphocytes (%) (Auto) 30 % Monocytes (%) (Auto) 8 % Eosinophils (%) (Auto) 8 % Basophils (%) (Auto) 1 % Neutrophils # (Auto) 4.0 x10^3uL Lymphocytes # (Auto) 2.2 x10^3/uL Monocytes # (Auto) 0.6 x10^3/uL Eosinophils # (Auto) 0.6 x10^3/uL Basophils # (Auto) 0.1 x10^3/uL Sodium Level 135 mmol/L Potassium Level 3.6 mmol/L Chloride Level 103 mmol/L Carbon Dioxide Level 24 mmol/L Anion Gap 8 Blood Urea Nitrogen 7 mg/dL Creatinine 0.8 mg/dL Estimated GFR (Cockcroft-Gault) 135.6 Glucose Level 95 mg/dL Calcium Level 8.4 mg/dL Troponin I High Sensitivity 7 ng/L Current Medications Medications (Trade) Dose Ordered Sig/Brooklynn Route PRN Reason Start Time Stop Time Status Last Admin Dose Admin Albuterol/ Ipratropium (Duoneb) 3 ml 1X ONCE NEB 12/16/21 07:15 12/16/21 07:28 DC 12/16/21 07:19 Methylprednisolone Sodium Succinate (SOLU-Medrol 125MG VIAL) 125 mg 1X ONCE IV 12/16/21 07:15 12/16/21 07:28 DC 12/16/21 07:39 Lisinopril (Prinivil) 20 mg DAILY PO 12/16/21 09:00 12/16/21 07:43 EKG EKG EKG ordered and interpreted by myself at 0735 hrs. as sinus rhythm at 83 bpm, unremarkable intervals, no axis deviation, no obvious ischemic findings, no ALISON [place] Radiology/Procedures Radiology/Procedures XR CHEST 1V Clinical Indication: Reason: shob / Spl. Instructions: / History: Comparison: AP chest July 30, 2021. Findings: The cardiomediastinal silhouette is normal. Lungs are clear. There is no pneumothorax. No pleural effusion is appreciated. No acute bone abnormality. IMPRESSION: No acute cardiopulmonary process. Electronically signed by: Zachery Hwang MD (12/16/2021 7:55 AM) [facility] Heart Score C/O Chest Pain: No HEART Score for Chest Pain: HEART Score for Chest Pain Response (Comments) Value History Slighlty/Non-Suspicious 0 ECG Normal 0 Age < 45 0 Risk Factors 1 or 2 Risk Factors 1 Troponin < Normal Limit 0 Total 1 Risk Factors: Risk Factors: DM, Current or recent (<one month) smoker, HTN, HLP, family history of CAD, obesity. Risk Scores: Risk Factors: DM, Current or recent (<one month) smoker, HTN, HLP, family history of CAD, obesity. Course & Med Decision Making Course & Med Decision Making Airway patent, increased work of breathing without failure, and vitals obtained concerning for asymptomatic hypertension only in a patient who has not been taking home blood pressure medications HPI physical exam and comprehensive ER work-up concerning for asthma exacerbation with likely etiology being URI versus recent cold weather change. Cannot exclude COVID-19 in an unvaccinated individual, PCR test pending Patient responded to provided steroids, 20 mg lisinopril, and DuoNeb treatments x2 while in ER setting. I disclosed entirety of ER work-up and all findings. Patient amenable to plan of care for continued treatment of asthma exacerbation with steroids and new albuterol inhaler on discharge with appropriate self quarantine and supportive care instructions Advised patient it is crucial for him to follow-up in outpatient setting when safe to do so with primary care physician for continuity of care Dragon Disclaimer Dragon Disclaimer This electronic medical record was generated, in whole or in part, using a voice recognition dictation system. Departure Departure: Impression: Primary Impression: Asthma exacerbation Additional Impressions: HTN (hypertension) Person under investigation for COVID-19 Disposition: HOME / SELF CARE / HOMELESS Condition: IMPROVED Referrals: PCP,WILLIE (PCP) Additional Instructions: You were seen for an asthma exacerbation and possible infection with COVID-19. Your physical exam was reassuring. Your chest x-ray and laboratory analysis was normal. We tested you for COVID-19 but this test does not come back for 1 to 2 days. In the meantime you need to quarantine yourself at home away from all other individuals, especially those who are elderly or have any other chronic health issues or an immunocompromised status. Alternate Tylenol and ibuprofen as needed for body aches and pain. If your test does come back positive you need to quarantine yourself for 10 days until symptom-free. You should make sure to drink plenty of fluids and get plenty of rest. You should return to the ED if you develop worsening cough, shortness of breath, chest pain, or any other new or concerning symptoms. Please take prescribed steroids and blood pressure medications to completion. Please keep a dedicated blood pressure log for review with your primary care provider and outpatient setting for continuity of care Scripts Lisinopril (LISINOPRIL) 20 Mg Tablet 1 TAB PO DAILY for hypertension, #30 TAB 0 Refills Prov: ARABELLA SAMUELS DO 12/16/21 Prednisone (PREDNISONE) 20 Mg Tablet 60 MG PO DAILY for bronchitis for 5 Days, #15 TAB Prov: ARABELLA SAMUELS DO 12/16/21 Problem Qualifiers ARABELLA SAMUELS DO Dec 16, 2021 07:19
--- NOTE | 2021-12-16 07:45 | EKG ---
[address] [address] Test Date: 2021-12-16 Test Time: 07:33:51 Pat Name: YOEL SUTTON Department: Room: Gender: M General Activities Therapist: TATE : 1990 Requested By: ARABELLA SAMUELS Order Number: [id number] Reading MD: Jacky Ambrose Measurements Intervals [place] Rate: 83 P: 55 LA: 154 QRS: 67 QRSD: 108 T: 31 QT: 378 QTc: 445 Interpretive Statements SINUS RHYTHM Electronically Signed On 12-19-2021 14:09:47 MEDIA ANALYTICS MANAGER by Jacky Ambrose
[2021-12-16 07:46] LABS: BASO # 0.1 x10^3/uL (0.0-0.2); BASO % 1 % (0-3); EOS # 0.6 x10^3/uL (0.0-0.7); EOS % 8 % (0-3); HEMATOCRIT 41.8 % (39.0-53.0); HEMOGLOBIN 13.8 g/dL (13.0-17.5); LYMPH # 2.2 x10^3/uL (1.0-4.8); LYMPH % 30 % (24-48); MEAN CORPUSCULAR HEMOGLOBIN 27 pg (25-35); MEAN CORPUSCULAR HGB CONC 33 g/dL (31-37); MEAN CORPUSCULAR VOLUME 83 fL (79-100); MONO # 0.6 x10^3/uL (0.0-1.1); MONO % 8 % (0-9); NEUT % 53 % (31-73); PLATELET COUNT 230 x10^3/uL (140-400); RED BLOOD COUNT 5.07 x10^6/uL (4.30-5.70); RED CELL DISTRIBUTION WIDTH 15.5 % (11.5-14.5); WHITE BLOOD COUNT 7.5 x10^3/uL (4.0-11.0)
[2021-12-16 07:52] LABS: CALCIUM 8.4 mg/dL (8.5-10.1); CREATININE 0.8 mg/dL (0.7-1.3); GFR 135.6; POTASSIUM 3.6 mmol/L (3.5-5.1)
--- NOTE | 2021-12-16 07:58 | RAD ---
XR CHEST 1V Clinical Indication: Reason: shob / Spl. Instructions: / History: Comparison: AP chest July 30, 2021. Findings: The cardiomediastinal silhouette is normal. Lungs are clear. There is no pneumothorax. No pleural eff usion is appreciated. No acute bone abnormality. IMPRESSION: No acute cardiopulmonary process. Electronically signed by: Zachery Hwang MD (12/16/2021 7:55 AM) [facility]
[2021-12-16] MEDS ORDERED: LISI20TA18 PO (08:11)
[2021-12-16] MEDS ORDERED: PRED20TA PO (08:11)
[2021-12-16] MEDS ORDERED: ALBUTEROL SULFATE 8GM INHALER. INH ONE (08:15)
[2021-12-16 08:35] VITALS: BP 187/97
[2021-12-16] MEDS ORDERED: LISINOPRIL 10 MG TABLET PO SCH (09:00)
== END 2021-12-16 08:40 | disposition home or self-care (01) ==
LOC: ER 06:59
DX: J45.901 Unspecified asthma with (acute) exacerbation (principal); I10 Essential (primary) hypertension; F17.210 Nicotine dependence, cigarettes, uncomplicated; Z20.822 Contact with and (suspected) exposure to COVID-19; E66.9 Obesity, unspecified; Z68.36 Body mass index [BMI] 36.0-36.9, adult
CPT/HCPCS: 71045; 80048; 84484; 85025; 93005; 94640; 96374; 99285; C9803; J2930; U0003; 94664

== ENCOUNTER 2022-01-01 08:06 | Emergency (ER) | payer BC ==
[~2022-01-01] VITALS: Ht 185.4 cm; Wt 155.0 kg
[~2022-01-01 08:06] MED LIST changes: +LISI20TA18 PO
[2022-01-01] MEDS ORDERED: ALBUTEROL SULFATE 2.5 MG/3 ML NEBU. CONT NEB ONE (08:45)
[2022-01-01] MEDS ORDERED: ALBUTEROL SULFATE 8GM INHALER. INH ONE (08:45)
[2022-01-01] MEDS ORDERED: methylPREDNISolone SOD SUCC PF 125 MG/2 ML VIAL. IV ONE (08:45)
--- NOTE | 2022-01-01 08:50 | PHYS DOC ---
Past History Past Medical History: Asthma, Hypertension Additional Past Medical Histor: obesity Past Surgical History: No Surgical History Smoking: Cigarettes Alcohol Use: Occasionally Drug Use: None General Adult EDM: Chief Complaint: SHORTNESS OF BREATH HPI: HPI: 31-year-old male presents via EMS with shortness of breath and wheezing. Patient has a history of asthma. He started to feel like he was having some difficulty breathing last night before bed. He woke up in the middle the night and was having increased work of breathing and felt like he was wheezing. He is supposed to be on albuterol as well as a daily inhaled steroid. He does not have his medications because he cannot currently afford them. He denies fever or chills. No known sick contacts. Review of Systems: Review of Systems: Constitutional: Denies fever or chills Eyes: Denies change in visual acuity HENT: Denies nasal congestion or sore throat Respiratory: shortness of breath Cardiovascular: Denies chest pain or edema GI: Denies abdominal pain, nausea, vomiting, bloody stools or diarrhea : Denies dysuria Musculoskeletal: Denies back pain or joint pain Integument: Denies rash Neurologic: Denies headache, focal weakness or sensory changes Endocrine: Denies polyuria or polydipsia Lymphatic: Denies swollen glands Psychiatric: Denies depression or anxiety Current Medications: Current Meds: Current Medications Medications (Trade) Dose Ordered Sig/Brooklynn Start Time Stop Time Status Last Admin Dose Admin Albuterol Sulfate (Ventolin Hfa Inhaler) 1 puff 1X ONCE 01/01/22 08:45 01/01/22 08:46 UNV Albuterol Sulfate (Ventolin) 10 mg 1X ONCE 01/01/22 08:45 01/01/22 08:46 UNV Methylprednisolone Sodium Succinate (SOLU-Medrol 125MG VIAL) 125 mg 1X ONCE 01/01/22 08:45 01/01/22 08:46 UNV Allergies: Allergies: Allergies Coded Allergies Type Severity Reaction Last Updated Verified No Known Drug Allergies 01/01/22 No Physical Exam: PE: Constitutional: Well developed, well nourished, morbidly obese, no acute distress, non-toxic appearance. [] HENT: Normocephalic, atraumatic, bilateral external ears normal, oropharynx moist, no oral exudates, nose normal. [] Eyes: PERRLA, EOMI, conjunctiva normal, no discharge. [] Neck: Normal range of motion, no tenderness, supple, no stridor. [] Cardiovascular: Heart rate regular rhythm, no murmur [] Lungs & Thorax: Bilateral breath sounds with diffuse expiratory wheezing [] Abdomen: Bowel sounds normal, soft, no tenderness, no masses, no pulsatile masses. [] Skin: Warm, dry, no erythema, no rash. [] Back: No tenderness, no CVA tenderness. [] Extremities: No tenderness, no cyanosis, no clubbing, ROM intact, no edema. [] Neurologic: Alert and oriented X 3, normal motor function, normal sensory function, no focal deficits noted. [] Psychologic: Affect normal, judgement normal, mood normal. [] Current Patient Data: Vital Signs: Vital Signs Date Time Temp Pulse Resp B/P (MAP) Pulse Ox O2 Delivery O2 Flow Rate FiO2 01/01/22 08:08 97.9 70 26 153/106 (122) 99 Aerosol Mask 6.0 01/01/22 08:07 0.40 EKG: EKG: [] Radiology/Procedures: Radiology/Procedures: [] Impressions: XR CHEST 1V INDICATION: SOB COMPARISON STUDY: 12/16/2021. FINDINGS: Lungs: Normal lung volume. No pulmonary mass or consolidation. The tracheobronchial tree and hilar structures are normal. Pleura: No pleural effusion or pneumothorax. Heart and Mediastinum: The cardiomediastinal silhouette is normal. The great vessels of the thorax are normal. Bones and Soft Tissues: The bones and soft tissues are within normal limits. IMPRESSION: No consolidation. Electronically signed by: Ramila Ring MD (01/01/2022 8:57 AM) [id number] DICTATED AND SIGNED BY: RAMILA RING MD DATE: 01/01/22 0854 CC: ZEKE DANIELS DO; PCP,NO ~MTH0 0 Heart Score: C/O Chest Pain: N/A Risk Factors: Risk Factors: DM, Current or recent (<one month) smoker, HTN, HLP, family history of CAD, obesity. Risk Scores: Score 0 - 3: 2.5% MACE over next 6 weeks - Discharge Home Score 4 - 6: 20.3% MACE over next 6 weeks - Admit for Clinical Observation Score 7 - 10: 72.7% MACE over next 6 weeks - Early Invasive Strategies Course & Med Decision Making: Course & Med Decision Making Pertinent Labs and Imaging studies reviewed. (See chart for details) The patient was given a DuoNeb and albuterol nebulizer by EMS prior to arrival. His nebulizer was continuing in the ED. The patient is in now calm and able to speak complete sentences. He is 95% on room air. He still has diffuse wheezing. I will treat him with 125 Solu-Medrol and additional albuterol treatment. Chest x-ray is negative for acute findings. The patient is feeling much better at this time. I will discharge him with 3 more days of prednisone. He also has a partially swollen upper lip that started this morning after he woke up. No history of angioedema. He is not on any medications that could cause this. It is only the right side of his upper lip. He has no airway difficulty. The steroids that he was given should help with this as well. He is stable for discharge at this time. [] Luis Disclaimer: Luis Disclaimer: This electronic medical record was generated, in whole or in part, using a voice recognition dictation system. Departure Departure: Impression: Primary Impression: Asthma exacerbation Qualified Codes: J45.21 - Mild intermittent asthma with (acute) exacerbation Disposition: HOME / SELF CARE / HOMELESS Condition: STABLE Referrals: PCP,NO (PCP) Patient Instructions: Asthma Attacks, Prevention, Asthma, Adult, [id number] Scripts Prednisone (PREDNISONE) 10 Mg Tablet 50 MG PO DAILY for asthma for 3 Days, #15 TAB Prov: ZEKE DANIELS DO 01/01/22 ZEKE DANIELS DO Jan 01, 2022 08:49
--- NOTE | 2022-01-01 08:59 | RAD ---
XR CHEST 1V INDICATION: SOB COMPARISON STUDY: 12/16/2021. FINDINGS: Lungs: Normal lung volume. No pulmonary mass or consolidation. The tracheobronchial tree and hilar st ructures are normal. Pleura: No pleural effusion or pneumothorax. Heart and Mediastinum: The cardiomediastinal silhouette is normal. The great vessels of the thorax ar e normal. Bones and Soft Tissues: The bones and soft tissues are within normal limits. IMPRESSION: No consolidation. Electronically signed by: Thomas Kimble MD (01/01/2022 8:57 AM) [id number]
[2022-01-01 09:57] LABS: BASO # 0.1 x10^3/uL (0.0-0.2); BASO % 1 % (0-3); EOS # 0.6 x10^3/uL (0.0-0.7); EOS % 9 % (0-3); HEMATOCRIT 42.8 % (39.0-53.0); HEMOGLOBIN 14.1 g/dL (13.0-17.5); LYMPH # 1.9 x10^3/uL (1.0-4.8); LYMPH % 28 % (24-48); MEAN CORPUSCULAR HEMOGLOBIN 27 pg (25-35); MEAN CORPUSCULAR HGB CONC 33 g/dL (31-37); MEAN CORPUSCULAR VOLUME 82 fL (79-100); MONO # 0.6 x10^3/uL (0.0-1.1); MONO % 9 % (0-9); NEUT # 3.6 x10^3uL (1.8-7.7); NEUT % 53 % (31-73); PLATELET COUNT 245 x10^3/uL (140-400); RED BLOOD COUNT 5.24 x10^6/uL (4.30-5.70); RED CELL DISTRIBUTION WIDTH 15.5 % (11.5-14.5); WHITE BLOOD COUNT 6.7 x10^3/uL (4.0-11.0)
[2022-01-01 09:58] LABS: CALCIUM 8.7 mg/dL (8.5-10.1); CREATININE 0.9 mg/dL (0.7-1.3); GFR 118.3; POTASSIUM 3.9 mmol/L (3.5-5.1)
[2022-01-01 10:01] LABS: ALBUMIN 3.5 g/dL (3.4-5.0); ALBUMIN/GLOBULIN RATIO 0.8 (1.0-1.7); TOTAL BILIRUBIN 0.2 mg/dL (0.2-1.0)
[2022-01-01 10:08] LABS: INFLUENZA A PATIENT NEGATIVE (NEGATIVE); INFLUENZA B PATIENT NEGATIVE (NEGATIVE)
[2022-01-01] MEDS ORDERED: PRED-220 PO (10:38)
[2022-01-01 11:10] VITALS: BP 168/102
== END 2022-01-01 11:10 | disposition home or self-care (01) ==
LOC: ER 08:06
DX: J45.21 Mild intermittent asthma with (acute) exacerbation (principal); I10 Essential (primary) hypertension; F17.210 Nicotine dependence, cigarettes, uncomplicated
CPT/HCPCS: 36415; 71045; 80053; 85025; 87428; 94640; 94644; 96374; 99285; J2930; J7613; 94664

== ENCOUNTER 2022-01-28 04:27 | Emergency (ER) | payer BC ==
[~2022-01-28] VITALS: Ht 185.4 cm; Wt 131.0 kg
[~2022-01-28 04:27] MED LIST changes: +PRED-220 PO
[2022-01-28] MEDS ORDERED: IPRATRPIUM/ALBUTEROL 0.5/2.5MG 3 ML NEBU. NEB ONE (04:30)
[2022-01-28] MEDS ORDERED: ALBUTEROL SULFATE 8GM INHALER. INH ONE (04:30)
--- NOTE | 2022-01-28 04:41 | PHYS DOC ---
Past History Past Medical History: Asthma, Hypertension Additional Past Medical Histor: obesity Past Surgical History: No Surgical History Smoking: Cigarettes Alcohol Use: Occasionally Drug Use: None General Adult EDM: Chief Complaint: ASTHMA HPI: HPI: 31-year-old male presents via EMS with shortness of breath. The patient was starting to feel a little short of breath yesterday. He is out of his albuterol inhaler. He began to feel more short of breath and like he was wheezing later in the day and early this morning it got so bad he called EMS. He was found on an oxygen saturation in the 80s. He was given a DuoNeb treatment and his oxygen improved in the low 90s. He had additional treatment of albuterol and Benadryl prior to arrival. Patient tells me that he has not had a fever. He has not been feeling ill in any other way. He is out of his albuterol. Review of Systems: Review of Systems: Constitutional: Denies fever or chills Eyes: Denies change in visual acuity HENT: Denies nasal congestion or sore throat Respiratory: shortness of breath Cardiovascular: Denies chest pain or edema GI: Denies abdominal pain, nausea, vomiting, bloody stools or diarrhea : Denies dysuria Musculoskeletal: Denies back pain or joint pain Integument: Denies rash Neurologic: Denies headache, focal weakness or sensory changes Endocrine: Denies polyuria or polydipsia Lymphatic: Denies swollen glands Psychiatric: Denies depression or anxiety Current Medications: Current Meds: Current Medications Medications (Trade) Dose Ordered Sig/[place] Start Time Stop Time Status Last Admin Dose Admin Albuterol Sulfate (Ventolin Hfa Inhaler) 1 puff 1X ONCE 01/28/22 04:30 01/28/22 04:33 DC Albuterol/ Ipratropium (Duoneb) 3 ml 1X ONCE 01/28/22 04:30 01/28/22 04:33 DC Dexamethasone Sodium Phosphate (Decadron) 10 mg 1X ONCE 01/28/22 04:45 01/28/22 04:46 Allergies: Allergies: Allergies Coded Allergies Type Severity Reaction Last Updated Verified No Known Drug Allergies 01/01/22 No Physical Exam: PE: Constitutional: Well developed, well nourished, morbidly obese, no acute distress, non-toxic appearance. [] HENT: Normocephalic, atraumatic, bilateral external ears normal, oropharynx moist, no oral exudates, nose normal. [] Eyes: PERRLA, EOMI, conjunctiva normal, no discharge. [] Neck: Normal range of motion, no tenderness, supple, no stridor. [] Cardiovascular: Heart rate regular rhythm, no murmur [] Lungs & Thorax: Bilateral breath sounds with end expiratory wheezing [] Abdomen: Bowel sounds normal, soft, no tenderness, no masses, no pulsatile masses. [] Skin: Warm, dry, no erythema, no rash. [] Back: No tenderness, no CVA tenderness. [] Extremities: No tenderness, no cyanosis, no clubbing, ROM intact, no edema. [] Neurologic: Alert and oriented X 3, normal motor function, normal sensory function, no focal deficits noted. [] Psychologic: Affect normal, judgement normal, mood normal. [] Current Patient Data: Vital Signs: Vital Signs Date Time Temp Pulse Resp B/P (MAP) Pulse Ox O2 Delivery O2 Flow Rate FiO2 01/28/22 04:31 97.5 83 20 161/99 (119) 96 Room Air EKG: EKG: [] Radiology/Procedures: Radiology/Procedures: [] Heart Score: C/O Chest Pain: N/A Risk Factors: Risk Factors: DM, Current or recent (<one month) smoker, HTN, HLP, family history of CAD, obesity. Risk Scores: Score 0 - 3: 2.5% MACE over next 6 weeks - Discharge Home Score 4 - 6: 20.3% MACE over next 6 weeks - Admit for Clinical Observation Score 7 - 10: 72.7% MACE over next 6 weeks - Early Invasive Strategies Course & Med Decision Making: Course & Med Decision Making Pertinent Labs and Imaging studies reviewed. (See chart for details) We will give the patient a DuoNeb treatment and 125 Solu-Medrol in the emergency room. Chest x-ray is negative for acute findings. The patient is feeling much better at this time. I will discharge him with a albuterol MDI and a prescription for another one. [] Dragon Disclaimer: Dragon Disclaimer: This electronic medical record was generated, in whole or in part, using a voice recognition dictation system. Departure Departure: Impression: Primary Impression: Asthma exacerbation Disposition: HOME / SELF CARE / HOMELESS Condition: IMPROVED Referrals: PCP,NO (PCP) Patient Instructions: Asthma, Adult, [id number] Scripts Albuterol Sulfate (PROAIR HFA INHALER) 8.5 Gm Hfa.aer.ad 2 PUFF IH PRN Q4-6HRS PRN for wheezing for 21 Days, #1 INHALER 0 Refills Generic albuterol sulfate MDI substitution is authorized Prov: ZEKE DANIELS DO 01/28/22 ZEKE DANIELS DO Jan 28, 2022 04:41
[2022-01-28] MEDS ORDERED: ALBU2.5V8 IH (04:43)
[2022-01-28] MEDS ORDERED: methylPREDNISolone SOD SUCC PF 125 MG/2 ML VIAL. IV ONE (04:45)
[2022-01-28] MEDS ORDERED: DEXAMETHASONE SOD PHOS 10 MG/ML VIAL. IM ONE (04:45)
[2022-01-28 05:26] VITALS: BP 169/99
--- NOTE | 2022-01-28 05:28 | RAD ---
EXAMINATION: XR CHEST 1V CLINICAL HISTORY: Shortness of breath. History of asthma. EXAM DATE/TIME: 01/28/2022 5:07 AM COMPARISON: 01/01/2022 FINDINGS: Lines, Tubes, and Devices: None. Cardiomediastinal Silhouette: Normal heart size. Aortic atherosclerotic calcification. Lungs and Pleura: Mild patchy opacities in the bilateral lower lung zones, greater on the right. No e vidence of pleural effusion or pneumothorax. Bones and Soft Tissues: No acute osseous abnormality. IMPRESSION: Mild patchy airspace disease in the lower lung zones. Electronically signed by: Reza Holm DO (01/28/2022 5:26 AM) [facility]
== END 2022-01-28 05:30 | disposition home or self-care (01) ==
LOC: ER 04:27
DX: J45.901 Unspecified asthma with (acute) exacerbation (principal); I10 Essential (primary) hypertension; F17.210 Nicotine dependence, cigarettes, uncomplicated; E66.9 Obesity, unspecified; Z68.38 Body mass index [BMI] 38.0-38.9, adult
CPT/HCPCS: 71045; 94640; 99283; J2930

== ENCOUNTER 2022-02-09 13:02 | Emergency (ER) | payer BC, MEDICAID ==
[~2022-02-09] VITALS: Ht 185.4 cm; Wt 131.0 kg
[2022-02-09 13:04] VITALS: BP 153/100
--- NOTE | 2022-02-09 13:04 | PHYS DOC ---
Past History Past Medical History: Asthma, Hypertension Additional Past Medical Histor: obesity Past Surgical History: No Surgical History Smoking: Cigarettes Alcohol Use: None Drug Use: None General Adult EDM: Chief Complaint: SHORTNESS OF BREATH HPI: HPI: Patient is a 31-year-old male brought in by EMS for evaluation of shortness of breath, cough, wheezing. He has his asthma. He is out of his inhalers. He was here on 28 January was prescribed albuterol, he was also given an MDI, he reports that he used it all already. He never filled the prescription he was given. He reports coughing for the past 2 days. He denies hemoptysis. He denies chest pain, fevers or chills, abdominal pain, nausea or vomiting. He denies lower extremity pain or swelling. He continues to smoke tobacco. He reports that he moved here a few months ago from [place]. He does not have a primary care physician here. He also reports that he has history of hypertension and has previously been prescribed lisinopril but he has been out of this for the last few months as well. He denies recent travel, surgery, hospitalization. No other complaints reported. EMS reported that his room air sat was 91%, they gave him a DuoNeb, his oxygen saturation increased to the high 90s. He reports feeling better after the treatment. Review of Systems: Review of Systems: Constitutional: Denies fever or chills Eyes: Denies change in visual acuity HENT: Mild nasal congestion, sneezing, denies sore throat Respiratory: Dyspnea, wheezing, cough, denies hemoptysis Cardiovascular: Denies chest pain or edema GI: Denies abdominal pain, nausea, vomiting Musculoskeletal: Denies back pain or joint pain Integument: Denies rash Neurologic: Denies headache, focal weakness or sensory changes Psychiatric: Denies depression or anxiety Allergies: Allergies: Allergies Coded Allergies Type Severity Reaction Last Updated Verified No Known Drug Allergies 01/01/22 No Physical Exam: PE: Constitutional: Well developed, well nourished, no acute distress, non-toxic appearance. [] HENT: Normocephalic, atraumatic, oropharynx is patent and clear, mucous members are moist. Eyes: Sclera are clear and anicteric Neck: Trachea is midline, no JVD, no meningismus Cardiovascular:Heart rate regular rhythm, was 2 radial pulses bilaterally Lungs & Thorax: Mild bilateral expiratory wheezing, no tachypnea, no retractions, no stridor, no rales or rhonchi, speaks in full and clear sentences. No cyanosis. No evidence of respiratory distress. Abdomen: Abdomen is soft, nondistended, nontender to palpation. Skin: Warm, dry, no erythema, no rash. [] Back: No tenderness, no CVA tenderness. [] Extremities: No tenderness, no cyanosis, no clubbing, ROM intact, no edema. No calf tenderness. Neurologic: Alert and oriented X 3, normal motor function, normal sensory function, no focal deficits noted. [] Psychologic: Affect normal, judgement normal, mood normal. [] EKG: EKG: [] Radiology/Procedures: Radiology/Procedures: [] Heart Score: C/O Chest Pain: No Risk Factors: Risk Factors: DM, Current or recent (<one month) smoker, HTN, HLP, family history of CAD, obesity. Risk Scores: Score 0 - 3: 2.5% MACE over next 6 weeks - Discharge Home Score 4 - 6: 20.3% MACE over next 6 weeks - Admit for Clinical Observation Score 7 - 10: 72.7% MACE over next 6 weeks - Early Invasive Strategies Course & Med Decision Making: Course & Med Decision Making Pertinent Labs and Imaging studies reviewed. (See chart for details) He is given an albuterol nebulizer treatment, he is given another metered-dose inhaler. He is given a dose of oral prednisone here. Chest x-ray is unremarkable. I have explained the findings, differential diagnosis and plan of care with him. I told him he must stop smoking immediately. He is given outpatient resources to establish care with a primary care physician. He is given a prescription discount card. Return precautions are given. He verbalizes understanding. Luis Disclaimer: Luis Disclaimer: This electronic medical record was generated, in whole or in part, using a voice recognition dictation system. Departure Departure: Impression: Primary Impression: Asthma exacerbation Qualified Codes: J45.901 - Unspecified asthma with (acute) exacerbation Additional Impressions: Hypertension Qualified Codes: I10 - Essential (primary) hypertension Noncompliance Tobacco use Disposition: HOME / SELF CARE / HOMELESS Condition: STABLE Referrals: PCP,NO (PCP) Patient Instructions: Asthma Prevention-Brief, Asthma, Adult Additional Instructions: Take the full course of prednisone as directed until gone. You may start taking your next dose tomorrow. Use your inhaler as needed. Return to the ER for severe chest pain, refractory wheezing, respiratory distress, uncontrolled vomiting, abdominal pain, dehydration, weakness, or other concerns. It is imperative that you stop smoking immediately. Please follow-up with a primary care physician. Scripts Prednisone (PREDNISONE) 50 Mg Tablet 1 TAB PO DAILY for asthma for 4 Days, #4 TAB take next dose 02/10/22 Prov: TRA RUBIN DO 02/09/22 Albuterol Sulfate (VENTOLIN HFA INHALER) 18 Gm Hfa.aer.ad 2 PUFF IH PRN Q4HRS PRN for FOR ASTHMA, #1 EACH 4 Refills Prov: TRA RUBIN DO 02/09/22 TRA RUBIN DO Feb 09, 2022 13:04
[2022-02-09] MEDS ORDERED: ALBUTEROL SULFATE 2.5 MG/3 ML NEBU. NEB ONE (13:15)
[2022-02-09] MEDS ORDERED: predniSONE 10 MG TABLET. PO ONE (13:15)
[2022-02-09] MEDS ORDERED: ALBUTEROL SULFATE 8GM INHALER. INH ONE (13:15)
[2022-02-09] MEDS ORDERED: PRED50TA PO (14:00)
[2022-02-09] MEDS ORDERED: ALBU2.5V8 IH (14:00)
--- NOTE | 2022-02-09 14:10 | RAD ---
XR CHEST 2V History: Cough. History of asthma. Wheezing. Local clinical Comparison: None. Technique: PA and lateral chest radiographs. Findings: The lungs are adequately and symmectrically inflated. No airspace consolidation, pleural effusion or pneumothorax. The cardiomediastinal silhoutte and pulmonary vasculature are within normal limits. Sof t tissues and osseous structures are unremarkable. Impression: 1. No acute cardiopulmonary process. Electronically signed by: Gaudencio Sebastian MD (02/09/2022 2:07 PM) [id number]
== END 2022-02-09 14:10 | disposition home or self-care (01) ==
LOC: ER 13:02
DX: J45.901 Unspecified asthma with (acute) exacerbation (principal); I10 Essential (primary) hypertension; Z91.19 Patient's noncompliance with other medical treatment and regimen; F17.210 Nicotine dependence, cigarettes, uncomplicated
CPT/HCPCS: 71046; 94640; 99284; J7512; J7613; 94664